=== PATIENT | male | born 1990 | race Caucasian/White ===

== ENCOUNTER 2021-03-05 18:32 | Emergency (ER) | payer BC, SELFPAY ==
[2021-03-05 18:37] VITALS: BP 179/103; PULSE 79; RESP 16; TEMP 36.8; O2SAT 100
--- NOTE | 2021-03-05 20:22 | ED.GENADULT ---
HPI - General Adult General Chief complaint: Extremity Problem,Nontraumatic Stated complaint: Hands Tingling Time Seen by Provider: 03/05/21 19:31 Source: patient Mode of arrival: ambulatory Limitations: no limitations History of Present Illness HPI narrative: Patient is a 10-year-old male presenting with chief complaint of left finger tingling that began on Thursday after doing some activity. Patient states that he notices when he extends his left wrist he makes a fist he has some tingling and shooting pain into his palm and fingers. Patient reports he also noticed some tightening and pain in his left shoulder at the same time. Patient reports that he actually does not have the pains at this time. Patient denies traumatic injury to his neck or other extremities. Patient reports feeling well at this time. He wonders if his anxiety was playing a part in his symptoms. Related Data Allergies Allergy/AdvReac Type Severity Reaction Status Date / Time No Known Allergies Allergy Unverified 03/05/21 19:19 Review of Systems Review of Systems: CONSTITUTIONAL: Denies fever, chills, or sweats. EYES: Denies visual changes, redness, or discharge. ENT: Denies rhinorrhea, congestion, sore throat, or otalgia. CARDIOVASCULAR: Denies chest pain, palpitations, or edema. RESPIRATORY: Denies cough or dyspnea. GASTROINTESTINAL: Denies abdominal pain, nausea, vomiting, or diarrhea. GENITOURINARY: Denies dysuria or hematuria. SKIN: Denies rash or itching. MUSCULOSKELETAL: Denies back pain, joint pain, or myalgia. NEUROLOGIC: Denies headache, numbness, dizziness, or weakness. PSYCHIATRIC: Denies anxiety or depression. Exam Narrative: GENERAL: Well-appearing, well-nourished, and in no acute distress. HEAD: Normocephalic, atraumatic. EYES: PERRLA and EOMI. CHEST: Clear to auscultation. No respiratory distress. No wheezes rales or rhonchi HEART: Regular rate and rhythm. No murmur heard. Normal peripheral pulses. EXTREMITIES: Cap refill intact. Sensation intact. Normal range of motion. No edema. No identified abnormality to patient's upper extremities. No tenderness to palpation or abnormalities to patient left shoulder or neck. SKIN: Warm, dry, no rash. NEURO: No focal deficits. Alert and oriented x3. PSYCH: Normal mood and affect. Course Vital Signs Vital signs: Vital Signs Temperature 98.2 F 03/05/21 18:37 Pulse Rate 79 03/05/21 18:37 Respiratory Rate 16 03/05/21 18:37 Blood Pressure 179/103 H 03/05/21 18:37 Pulse Oximetry 100 03/05/21 18:37 Temperature 98.2 F 03/05/21 18:37 Pulse Rate 79 03/05/21 18:37 Respiratory Rate 16 03/05/21 18:37 Blood Pressure 179/103 H 03/05/21 18:37 Pulse Oximetry 100 03/05/21 18:37 Medical Decision Making MDM Narrative Medical decision making narrative: Patient not have any symptoms at this time. Patient does not have any screening abnormalities or neurological deficits. Patient instructed to return if he has any emergent symptoms. Patient to follow-up with primary care provider investigation if patient needs to return. Vital Signs Vital Signs: Vital Signs Temperature 98.2 F 03/05/21 18:37 Pulse Rate 79 03/05/21 18:37 Respiratory Rate 16 03/05/21 18:37 Blood Pressure 179/103 H 03/05/21 18:37 Pulse Oximetry 100 03/05/21 18:37 Temperature 98.2 F 03/05/21 18:37 Pulse Rate 79 03/05/21 18:37 Respiratory Rate 16 03/05/21 18:37 Blood Pressure 179/103 H 03/05/21 18:37 Pulse Oximetry 100 03/05/21 18:37 Discharge Plan Discharge Clinical Impression: Sprain of wrist, left Qualifiers: Encounter type: initial encounter Qualified Code(s): S63.502A - Unspecified sprain of left wrist, initial encounter Patient Disposition: Home, Self-Care Condition: Improved Instructions: Antibiotic Form, Wrist Sprain (ED) Additional Instructions: Take tylenol and ibuprofen OTC as directed if you can tolerate them if needed. Apply cool compress to
[2021-03-05 20:36] VITALS: BP 150/96; PULSE 77; RESP 18; O2SAT 98
== END 2021-03-05 20:36 | disposition home or self-care (01) ==
PROVIDERS: Emergency Provider Emergency Medicine; PCP Nurse Practitioner Family
DX: S63.502A Unspecified sprain of left wrist, initial encounter (principal); X58.XXXA Exposure to other specified factors, initial encounter
CPT/HCPCS: 99282

== ENCOUNTER 2021-12-27 05:38 | Observation (INO) | payer BC, SELFPAY ==
[2021-12-27] VITALS (28 sets, daily range): BP systolic 130–160; BP diastolic 64–90; PULSE 84–107; RESP 16–22; TEMP 36.6–37.8; O2SAT 97–100; BMI 34.8
--- NOTE | ~2021-12-27 | CT_ITS ---
EXAMINATION: CT abdomen pelvis w con DATE: 12/27/2021 06:37 INDICATION: Abdominal pain TECHNIQUE: Computed tomography (CT) of the abdomen and pelvis was performed with 100 mL Omnipaque-350 intravenous contrast. Automated exposure control and iterative reconstruction technique were employe d. The dose-length product was 1134.21 mGy-cm. COMPARISON: None FINDINGS: Lung bases are clear. Heart size is normal. No pericardial or pleural effusion. Liver, gallbladder, s pleen, pancreas, bilateral adrenal glands and kidneys are normal. Small bowel and appendix are normal . There are few diverticula along the sigmoid colon. There is focal wall thickening at the proximal s igmoid colon with adjacent inflammatory stranding and small amounts of extraluminal gas within the zheng rrounding mesenteric fat consistent with diverticulitis with microperforation. No more remote free in traperitoneal gas or abscess. Minimal likely reactive ascites in the deep pelvis. Bladder is normal. No pathologically enlarged abdominal or pelvic lymphadenopathy. Cystic change at the cephalad left fe moral head neck junction. IMPRESSION: 1. Diverticulitis with microperforation and small amount of local extraluminal gas but without absces s. Reviewed, dictated and finalized at location A. IMPRESSION: 1. Diverticulitis with microperforation and small amount of local extraluminal gas but without abscess.
[2021-12-27 05:56] LABS: Basophils Absolute Auto 0.1 K/mm3 (0.0-0.1); Basophils Percent Auto 0.8 % (0.2-1.2); Eosinophils Absolute Auto 0.2 K/mm3 (0-0.3); Eosinophils Percent Auto 1.5 % (0-4.4); Hematocrit 46.3 % (42.0-52.0); Hemoglobin 15.7 g/dL (14.0-18.0); Immature Granulocyte Absolute 0.07 K/mm3 (0.00-0.031); Immature Granulocyte Percent A 0.5 % (0-0.5); Lymphocytes Absolute Auto 3.73 K/mm3 (0.9-3.2); Mean Corpuscular HGB Conc 33.9 g/dl (32-36); Mean Corpuscular Hemoglobin 29.8 pg (26-34); Mean Platelet Volume 9.6 fl (7.4-10.4); Monocytes Absolute Auto 1.5 K/mm3 (0.1-0.6); Monocytes Percent Auto 10.1 % (2.6-8.5); Neutrophils Absolute Auto 8.8 K/mm3 (1.3-6.7); Neutrophils Percent Auto 61.1 % (45.5-73.1); Platelet Count Result 323 k/mm3 (150-375); Red Blood Count 5.26 M/mm3 (4.6-6.20); Red Cell Distribution Width 12.6 % (11.5-14.5); White Blood Count 14.4 K/mm3 (4.5-10.0)
[2021-12-27 06:06] LABS: Alanine Aminotransferase 42 U/L (6-50); Albumin Level 4.6 g/dL (3.5-5.1); Alkaline Phosphatase 106 U/L (38-126); Anion Gap 14 mmol/L (8-16); Aspartate Amino Transferase 38 U/L (17-59); Bilirubin,Total 1.4 mg/dL (0.2-1.3); Blood Urea Nitrogen 10 mg/dL (9-20); Calcium 8.8 mg/dL (8.4-10.2); Carbon Dioxide 22 mmol/L (22-30); Chloride 103 mmol/L (98-107); Estimated CRCL calculation 118 ml/min; Estimated Glomerular Filt Rate > 60; Glucose 119 mg/dL (65-110); Lipase 53 U/L (23-300); Sodium 139 mmol/L (137-145)
--- NOTE | 2021-12-27 06:17 | ED.GENADULT ---
HPI - General Adult General Chief complaint: Abdominal Pain Stated complaint: abd/ testicular pain Time Seen by Provider: 12/27/21 05:56 History of Present Illness HPI narrative: Patient is a 31-year-old gentleman who presents the emergency department with chief complaint of abdominal pain. Patient states that this evening he started having pain throughout his abdomen and reports it radiates to the groin. Patient reports no specific testicular pain but states that though he feels as though he has been kicked in the groin without pain in the actual testicles. Patient denies dysuria denies penile discharge denies vomiting or diarrhea. Patient reports the pain in his abdomen is worse with palpation and improved with rest. Related Data Allergies Allergy/AdvReac Type Severity Reaction Status Date / Time No Known Allergies Allergy Verified 12/27/21 05:49 Review of Systems Review of Systems: A 10 system review of systems was completed on the patient and is negative except for what is stated in the HPI. Nursing and ancillary documentation was reviewed. Exam Narrative: GENERAL: Well-appearing, well-nourished, and in no acute distress. HEAD: Normocephalic, atraumatic. EYES: PERRLA and EOMI. ENT: Nares clear, no rhinorrhea or epistaxis. Mucous membranes moist. NECK: Supple. CHEST: Clear to auscultation. No respiratory distress. HEART: Regular rate and rhythm. No murmur heard. Normal peripheral pulses. ABDOMEN: Soft, tender to palpation in the right lower quadrant and left lower quadrant nondistended, normal active bowel sounds. EXTREMITIES: Normal range of motion. No edema. SKIN: Warm, dry, no rash. NEURO: No focal deficits. Alert and oriented x3. PSYCH: Normal mood and affect. Course Course Emergency Course: CT scan of the abdomen pelvis showed evidence of acute diverticulitis with a microscopic perforation. The patient has a white blood cell count of 14,000. Patient reports his pain is feeling a little bit better after the fluids and morphine. A dose of Zosyn was ordered for the patient and a call has been placed to surgery and the hospitalist service. Vital Signs Vital signs: Vital Signs Temperature 36.7 C 12/27/21 05:46 Pulse Rate 87 12/27/21 05:46 Respiratory Rate 18 12/27/21 05:46 Blood Pressure 160/90 H 12/27/21 05:46 Pulse Oximetry 100 12/27/21 05:46 Oxygen Delivery Room Air 12/27/21 05:46 Temperature 36.7 C 12/27/21 05:46 Pulse Rate 84 12/27/21 07:15 Respiratory Rate 18 12/27/21 07:15 Blood Pressure 142/88 H 12/27/21 06:16 Pulse Oximetry 99 12/27/21 07:15 Oxygen Delivery Room Air 12/27/21 05:46 Medical Decision Making Vital Signs Vital Signs: Vital Signs Temperature 36.7 C 12/27/21 05:46 Pulse Rate 87 12/27/21 05:46 Respiratory Rate 18 12/27/21 05:46 Blood Pressure 160/90 H 12/27/21 05:46 Pulse Oximetry 100 12/27/21 05:46 Oxygen Delivery Room Air 12/27/21 05:46 Temperature 36.7 C 12/27/21 05:46 Pulse Rate 84 12/27/21 07:15 Respiratory Rate 18 12/27/21 07:15 Blood Pressure 142/88 H 12/27/21 06:16 Pulse Oximetry 99 12/27/21 07:15 Oxygen Delivery Room Air 12/27/21 05:46 Lab Data Result diagrams: 12/27/21 05:50 12/27/21 05:50 Labs: Lab Results 12/27/21 12/27/21 12/27/21 Range/Units 05:50 05:50 07:13 WBC 14.4 H (4.5-10.0) K/mm3 RBC 5.26 (4.6-6.20) M/mm3 Hgb 15.7 (14.0-18.0) g/dL Hct 46.3 (42.0-52.0) % MCV 88.0 (80-100) fl MCH 29.8 (26-34) pg MCHC 33.9 (32-36) g/dl RDW 12.6 (11.5-14.5) % Plt Count 323 (150-375) k/mm3 MPV 9.6 (7.4-10.4) fl Immature Gran % (Auto) 0.5 (0-0.5) % Neut % (Auto) 61.1 (45.5-73.1) % Lymph % (Auto) 26.0 (18.3-44.2) % [place] % (Auto) 10.1 H (2.6-8.5) % Eos % (Auto) 1.5 (0-4.4) % Baso % (Auto) 0.8 (0.2-1.2) % Lymph # (Auto) 3.73 H (0.9-3.2) K/mm3 [place] # (Auto) 1.5 H
[2021-12-27] MEDS: SODIUM CHLORIDE 0.9% IV 1,000 ML 999 ML IV CONT (06:24)
--- NOTE | 2021-12-27 06:24 | PC.NURSE ---
Fluids hung at this time. Refusing pain or nausea meds at this time. Asked to hold of because not having pain now
--- NOTE | 2021-12-27 07:05 | PC.NURSE ---
Report given to Deb QUINTANA
--- NOTE | 2021-12-27 07:17 | PC.NURSE ---
Assumed care of patient, MD at bedside. Urine sent to lab. Pt does not want morphine or zofran at this time. Informed if he changes his mind to alert MD. Call light in reach.
[2021-12-27 07:22] LABS: Appearance Urine Clear (Clear); Bilirubin Urine Negative (Negative); Color Urine Yellow (Yellow); Glucose Urine UA Negative (Negative); Ketones Urine Negative (Negative); Leukocyte Esterase Ur Negative LEU/UL (Negative); Nitrate Urine Negative (Negative); Protein Urine Negative (Negative); Urobilinogen Urine 0.2 mg/dL (<2.0)
[2021-12-27 07:25] LABS: Bacteria Urine Trace /hpf; RBC Urine 0-2 /hpf (0-2); WBC Urine 0-3 /hpf
[2021-12-27 07:32] LABS: Add Urine Microscopic? YES; Blood Urine Trace-Intact (Negative)
[2021-12-27] MEDS: SODIUM CHLORIDE 0.9% IV 1,000 ML 125 ML IV CONT ×2 (08:13→16:09)
[2021-12-27 08:36] LABS: SARS-CoV-2 RNA PCR Negative
--- NOTE | 2021-12-27 10:29 | ADMGEN ---
This patient, Heavenly Morales, was admitted to [facility] Surg Room 309-01 at 1025. Patient/family oriented to hospital policies and general routines including ID bracelet, bed and alarms, visiting hours, pain management, procedures, bathroom and other care routines, personal items, smoking policy, room service/diet, and visiting hours. Information on how to activate the Rapid Response Team has been discussed. Patient/Family are encouraged to report perceived risks to care and to ask questions if they do not understand what they are told or what they should do.
[2021-12-27] MEDS: ONDANSETRON INJ 4 MG/2 ML VIAL IV PUSH ×2 (11:00→13:42)
--- NOTE | 2021-12-27 13:17 | PM.IMHP ---
H&P: HPI History of Present Illness Date/Time: 12/27/21 13:17 Chief Complaint: Abdominal pain Narrative: This is a 31-year-old male patient who has had a long history of abdominal pain on and off. The patient has seen his primary care doctor for abdominal pain in the past and was told that he has irritable bowel syndrome. The patient started to have some discomfort yesterday he stated that it started in his upper quadrant but then moved down to his lower abdomen. He has no testicular pain but has right and left lower quadrant discomfort. He has no penile discharge. Denies any vomiting or diarrhea. The patient stated that his pain is worse when he moves or walks. He has had no past history of diverticulosis. His white count is 14.4. He has a subjective fever. COVID is negative. Urine is negative. Abdominal pelvis CT was read as diverticulitis with micro perforation and small amount of local extra luminal gas but without abscess. The patient was started on Zosyn, IV fluids and prescribed morphine for the pain. Patient is now complaining of a headache. The patient is being admitted for observation status on the date of service of 12/27/2021. Review of Systems Review of Systems: See HPI All systems reviewed & are unremarkable except as noted in HPI and below Constitutional: Constitutional: Reports as per HPI and Reports no additional constitutional complaints Eyes: Eyes: Reports as per HPI and Reports no additional eye complaints ENT: Reports system reviewed and no additional complaints, except as documented and Reports Normal hearing present Cardiovascular: Cardiovascular: Reports no additional cardiovascular complaints Respiratory: Respiratory: Reports no additional respiratory complaints and Reports no additional respiratory complaints Gastrointestinal: Gastrointestinal: Reports as per HPI and Reports no additional gastrointestinal complaints Musculoskeletal: Musculoskeletal: Reports no additional musculoskeletal complaints Integumentary/Breasts: Skin/Breast: Reports system reviewed and no additional complaints, except as docu and Reports as per HPI Neurologic: Reports system reviewed and no additional complaints, except as documented, Reports as per HPI and Reports Normal hearing present Psychiatric: Psychiatric: Reports no additional psychiatric complaints and Reports as per HPI Endocrine: Endocrine: Reports no additional endocrine complaints Hematologic/Lymphatic: Hematologic/Lymphatic: Reports no additional hematologic/lymphatic complaints Allergic/Immunologic: Allergic/Immunologic: Reports no additional allergic/immunologic complaints [facility] Past Medical History Medical History (Updated 12/27/21 @ 14:42 by Catrina Gonzalez NP) Hyperlipidemia Hypertension Irritable bowel syndrome Migraines Surgical History Surgical History (Updated 12/27/21 @ 14:42 by Catrina Gonzalez NP) No pertinent past surgical history Family History Family History (Updated 12/27/21 @ 14:44 by Catrina Gonzalez NP) Mother Hypertension COPD (chronic obstructive pulmonary disease) Hyperlipidemia Seizure Cerebrovascular accident Father Hyperlipidemia Social History Social History (Updated 12/27/21 @ 14:47 by Catrina Gonzalez NP) Social History: 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 He has some fiancee. Patient is a lifelong nonsmoker does not drink use marijuana or illicit drugs. He does not have a durable power delivery person for healthcare. Code status full code Smoking status: Never smoker Alcohol intake: former Substance use: never Spiritual care concerns: No Meds Home Medications and Allergies Home Medications Medication Instructions Recorded Confirmed Type acetaminophen 500 mg tablet 1,000 mg PO Q6H PRN Migraines 12/27/21 12/27/21 History (Acetaminophen Extra Strength) Allergies Allergy/AdvReac Type Severity Reaction Status Date / Time No Known Allergies Allergy Verified
[2021-12-27] MEDS: KETOROLAC 30 MG/ML VIAL (*BKC) IV PUSH (13:40)
--- NOTE | 2021-12-27 15:14 | PM.CNGS ---
Assessment and Plan Assessment and plan (1) Diverticulitis: Code(s): K57.92 - Diverticulitis of intestine, part unspecified, without perforation or abscess without bleeding Status: Acute Assessment and Plan: Recommend bowel rest, IV antibiotics, and gradual increase in diet if he does well. For now will keep NPO except allowing 1 cup of ice chips every 4 hours. Will check him again tomorrow. I encouraged him to be up walking some after pain medicine and I also encouraged him to learn about high-fiber diet. Will put in dietary consult to have him get literature about initially a low-fiber diet while he takes antibiotics and then converting to a high-fiber diet to prevent a separate or recurrent episode of his diverticulitis. Repeat labs in the a.m.. SCD hose to prevent DVT while he is less mobile. (2) Migraines: Code(s): G43.909 - Migraine, unspecified, not intractable, without status migrainosus Status: Acute (3) Hypertension: Code(s): I10 - Essential (primary) hypertension Status: Acute History of Present Illness Consult details Consult date: 12/27/21 Reason for consult: abdominal pain (CT showing left-sided diverticulitis) Requesting physician: Catrina Gonzalez NP Narrative: Patient is a pleasant 31-year-old white gentleman who presented early this morning to the [facility] department with chief complaint of abdominal pain.? He states it is mainly low left abdomen radiating toward the center. Patient states that early this morning just after having a bowel movement he started having pain throughout his abdomen (mainly lower) and reports it radiates sometimes when he moves just right to the left groin.? Patient reports no specific testicular pain but states that though he feels as though he has been kicked in the groin without pain in the actual testicles.? Patient denies dysuria denies penile discharge denies vomiting or diarrhea. States typically has a bowel movement once or twice a day and this has been true over the last week. He has never had a previous episode of diverticulitis. He did not know what it was. At his young age he has never had colonoscopy or any other intestinal problems. Review of Systems Review of Systems: All systems reviewed & are unremarkable except as noted in HPI and below (HPI) Constitutional: Constitutional: Reports as per HPI, Denies chills and Denies fever(s) Eyes: Eyes: Reports no additional eye complaints ENT: Reports Normal hearing present and Denies dizziness Cardiovascular: Cardiovascular: Reports no additional cardiovascular complaints, Denies chest pain and Denies irregular heart rhythm Comments: History hypertension hyperlipidemia. After his PCP told to 2 years ago that he needed go on medication he refused and changed his lifestyle and lost about 30 lb. However, apparently he is still on the borderline with both of these things. Respiratory: Respiratory: Reports no additional respiratory complaints Gastrointestinal: Gastrointestinal: Reports no additional gastrointestinal complaints, Denies abdominal pain and Denies bloating Comments: No history of previous abdominal surgery No History of previous episodes of diverticulitis. Genitourinary: Genitourinary: Denies hematuria Musculoskeletal: Musculoskeletal: Denies back pain Integumentary/Breasts: Skin/Breast: Reports system reviewed and no additional complaints, except as docu Neurologic: Reports Normal hearing present, Denies Abnormal speech present, Denies confusion and Denies dizziness Psychiatric: Psychiatric: Reports no additional psychiatric complaints and Denies confusion Endocrine: Endocrine: Reports no additional endocrine complaints Hematologic/Lymphatic: Hematologic/Lymphatic: Denies easy bleeding and Denies easy bruising Allergic/Immunologic: Allergic/Immunologic: Reports no additional allergic/immunologic complaints PMFSH Past Medical History Medical Hist
[2021-12-27] MEDS: HYDROmorphone HCL INJ (*CRX) 1 MG/ML SYR 0.5 MG IV PUSH (17:53)
[2021-12-28] MEDS: SODIUM CHLORIDE 0.9% IV 1,000 ML 125 ML IV CONT ×2 (01:19→10:12)
[2021-12-28 06:00] VITALS: BP 128/59; PULSE 96; RESP 18; TEMP 37.2; O2SAT 99
[2021-12-28 06:42] LABS: Basophils Absolute Auto 0.1 K/mm3 (0.0-0.1); Basophils Percent Auto 0.3 % (0.2-1.2); Eosinophils Percent Auto 0.2 % (0-4.4); Hematocrit 38.4 % (42.0-52.0); Hemoglobin 12.9 g/dL (14.0-18.0); Immature Granulocyte Absolute 0.05 K/mm3 (0.00-0.031); Immature Granulocyte Percent A 0.3 % (0-0.5); Lymphocytes Absolute Auto 1.71 K/mm3 (0.9-3.2); Lymphocytes Percent Auto 10.5 % (18.3-44.2); Mean Corpuscular HGB Conc 33.6 g/dl (32-36); Mean Corpuscular Hemoglobin 29.4 pg (26-34); Mean Corpuscular Volume 87.5 fl (80-100); Mean Platelet Volume 9.8 fl (7.4-10.4); Monocytes Absolute Auto 1.5 K/mm3 (0.1-0.6); Neutrophils Percent Auto 79.7 % (45.5-73.1); Platelet Count Result 261 k/mm3 (150-375); Red Blood Count 4.39 M/mm3 (4.6-6.20); Red Cell Distribution Width 12.5 % (11.5-14.5); White Blood Count 16.3 K/mm3 (4.5-10.0)
[2021-12-28 06:57] LABS: Alanine Aminotransferase 33 U/L (6-50); Alkaline Phosphatase 98 U/L (38-126); Anion Gap 10 mmol/L (8-16); Aspartate Amino Transferase 24 U/L (17-59); Bilirubin,Total 2.7 mg/dL (0.2-1.3); Blood Urea Nitrogen 10 mg/dL (9-20); Calcium 8.4 mg/dL (8.4-10.2); Carbon Dioxide 26 mmol/L (22-30); Chloride 101 mmol/L (98-107); Cholesterol 154 mg/dL (0-200); Estimated CRCL calculation 116 ml/min; Estimated Glomerular Filt Rate > 60; Glucose 110 mg/dL (65-110); HDL Direct 38 mg/dL; Lipase 29 U/L (23-300); Potassium 3.3 mmol/L (3.4-5.0); Sodium 137 mmol/L (137-145); Triglycerides 90 mg/dL (<150)
[2021-12-28 06:59] LABS: Lactic Acid Reflex 1.2 mmol/L (0.7-2.0)
[2021-12-28 07:08] LABS: LDL Cholesterol Direct 88 mg/dL
[2021-12-28 08:23] LABS: Thyroid Stimulating Hormone Reflex 0.764 uIU/mL (0.465-4.68)
[2021-12-28 09:56] VITALS: O2SAT 99
--- NOTE | 2021-12-28 10:40 | PM.PNGS ---
Progress Note: A&P Assessment and Plan (1) Diverticulitis: Code(s): K57.92 - Diverticulitis of intestine, part unspecified, without perforation or abscess without bleeding Status: Acute Assessment and Plan: The patient seems to be improving with IV fluids, bowel rest, and antibiotics. Will begin to liberalize diet and have patient increase activity. recheck CBC in a.m. as his white count did go up a little bit. Will have him begin taking MiraLax once a day starting tomorrow. I have also ordered him some oral pain medication that he can begin to switch to. I provided him with some literature regarding diverticulosis diverticulitis which I will discuss with him further tomorrow. Subjective Subjective Date/Time Seen: 12/28/21 10:40 Post hospital day# 2. Patient states today his pain is less than yesterday. He has been up walking and it still is more discomforting for him in the left lower quadrant when he is moving then when he is laying in bed where he has almost no pain. Knows that he had a low-grade fever overnight. Is passing flatus but no real bowel movement yet. Review of Systems Review of Systems: All systems reviewed & are unremarkable except as noted in HPI and below Constitutional: Constitutional: Reports as per HPI, Denies chills and Denies fever(s) Cardiovascular: Cardiovascular: Denies chest pain and Denies dyspnea Respiratory: Respiratory: Reports no additional respiratory complaints and Denies dyspnea Gastrointestinal: Gastrointestinal: Reports as per HPI and Denies bloating Musculoskeletal: Musculoskeletal: Reports no additional musculoskeletal complaints Neurologic: Denies memory loss Psychiatric: Psychiatric: Denies anxiety and Denies memory loss Exam Const: General: cooperative, comfortable, alert and awake Orientation/consciousness: patient oriented x3 HENMT: Head: normal to inspection Mouth: Yes moist mucous membranes Eyes: Sclera: sclerae normal Pupils: Equal, round and reactive pupils present Neck: Neck: normal visual inspection and no JVD Chest: Chest palpation & inspection: normal inspection of the chest Resp: Effort & Inspection: normal respiratory effort Auscultation: clear to auscultation bilaterally GI: Inspection: normal to inspection, obesity and no visible herniation GI Palp: Yes abdominal tenderness ( Mainly suprapubic and left lower quadrant), No Guarding due to palpation present (GI), No Rigid due to palpation and No Hernia present Auscultation: normal bowel sounds Rectal Exam: deferred Neuro: General: patient oriented x3 Objective Data Vital Signs Vital Signs: Vital Signs - 24 hr 12/27/21 10:43 12/27/21 14:00 12/27/21 22:00 Temperature 37.3 C 37.8 C H Pulse Rate 102 H 107 H Respiratory Rate 18 19 Blood Pressure 138/86 146/64 H Pulse Oximetry 99 99 98 Oxygen Delivery Room Air 12/27/21 20:00 12/28/21 06:00 12/28/21 09:56 Temperature 37.2 C Pulse Rate 107 H 96 Respiratory Rate 19 18 Blood Pressure 128/59 L Pulse Oximetry 98 99 99 Oxygen Delivery Room Air Room Air Intake/Output Intake/Output: Intake & Output 12/25/21 12/26/21 12/27/21 12/28/21 23:59 23:59 23:59 23:59 Intake Total 2410 2100 Output Total 1375 Balance 1035 2100 Meds/Results Medications: Active Medications Generic Name Dose Route Start Last Admin Trade Name Freq PRN Reason Stop Dose Admin Acetaminophen 1,000 mg 12/28/21 10:38 Acetaminophen 500 Mg Tablet PO Q6H PRN Mild Pain (1-3) or Fever Hydrocodone Bitart/Acetaminophen 1 tab 12/28/21 10:38 Hydrocodone/Acetaminophen (*Crx) 5-325 Mg Tablet PO Q6H PRN Pain Rated 4-6 Hydrocodone Bitart/Acetaminophen 1 tab 12/28/21 10:39 Hydrocodone/Acetaminophen (*Crx) 7.5-325 Mg Tablet PO Q6H PRN Pain Rated 7-10 Hydralazine HCl 10 mg 12/27/21 14:58 Hydralazine Hcl 20 Mg/Ml Vial IV PUSH Q8H PRN Blood Pressure - High P
[2021-12-28] MEDS: ACETAMINOPHEN 500 MG TABLET 1000 MG PO ×2 (12:04→19:25)
[2021-12-28 12:21] LABS: Basophils Percent Auto 0.3 % (0.2-1.2); Eosinophils Percent Auto 0.1 % (0-4.4); Hemoglobin 13.3 g/dL (14.0-18.0); Immature Granulocyte Absolute 0.06 K/mm3 (0.00-0.031); Immature Granulocyte Percent A 0.4 % (0-0.5); Lymphocytes Absolute Auto 1.26 K/mm3 (0.9-3.2); Lymphocytes Percent Auto 8.5 % (18.3-44.2); Mean Corpuscular HGB Conc 34.1 g/dl (32-36); Mean Corpuscular Hemoglobin 29.5 pg (26-34); Mean Corpuscular Volume 86.5 fl (80-100); Mean Platelet Volume 9.4 fl (7.4-10.4); Monocytes Absolute Auto 0.7 K/mm3 (0.1-0.6); Neutrophils Absolute Auto 12.7 K/mm3 (1.3-6.7); Neutrophils Percent Auto 85.7 % (45.5-73.1); Platelet Count Result 249 k/mm3 (150-375); Red Blood Count 4.51 M/mm3 (4.6-6.20); Red Cell Distribution Width 12.3 % (11.5-14.5); White Blood Count 14.8 K/mm3 (4.5-10.0)
--- NOTE | 2021-12-28 13:58 | PM.IMPN ---
Progress Note: A&P Assessment and Plan (1) Diverticulitis: Code(s): K57.92 - Diverticulitis of intestine, part unspecified, without perforation or abscess without bleeding Status: Acute Assessment and Plan: Patient presented with abdominal pain ongoing for [address] of abdomen/ pelvis showed diverticulitis with micro perforation and small amount of local extraluminal gas without identification of abscess appreciate general surgery consultation tolerating clear liquid diet. Advance diet as tolerated per General surgery recommendations continue gentle IV fluids until better tolerating diet continue IV Zosyn mild increase in leukocytosis overnight but recheck this afternoon and slightly improved at 14.8 low-grade fever 100.1? last night. Remaining afebrile today supportive care. Analgesics available as needed patient reports no history of diverticulitis. No colonoscopy. Will need outpatient follow-up following resolution of diverticulitis to consider outpatient colonoscopy (2) Migraines: Code(s): G43.909 - Migraine, unspecified, not intractable, without status migrainosus Status: Acute Assessment and Plan: resolved improved with analgesics offered sumatriptan last night, patient declined due to concerns for adverse effects (3) Hypertension: Code(s): I10 - Essential (primary) hypertension Status: Acute Assessment and Plan: blood pressure has been reasonably controlled. Last BP 128/59 patient is not on p.o. antihypertensives reportedly managing his blood pressure with dietary and lifestyle changes monitor BP trends (4) Hypokalemia: Code(s): E87.6 - Hypokalemia Status: Acute Assessment and Plan: potassium was 3.3 today likely due to NPO diet potassium has been supplemented monitor BMP (5) Hyperbilirubinemia: Code(s): E80.6 - Other disorders of bilirubin metabolism Status: Acute Assessment and Plan: total bilirubin mildly elevated at 2.7 today LFTs are within normal limits most likely benign genetic conditions such as Swengel disease. trend total bilirubin will obtain indirect and direct bilirubin levels with a.m. labs Subjective Date/time seen: 12/28/21 13:58 Interval history: date of service: 12/28/2021 Heavenly Morales is a 31-year-old male with a history of hypertension, hyperlipidemia, IBS, and migraines who is seen in follow-up for diverticulitis. He has starting to feel better today. He does complain of abdominal discomfort when he leans forward or moves around. He describes gas bubbles in his right upper quadrant area that he noticed moving around after he was eating. He was able to tolerate his clear liquid diet. He initially described some abdominal pressure when he 1st started eating but this passed quickly and he was able to finish most of his tray. He is passing flatus but states it is uncomfortable to do so. He has not had any bowel movements. He reports a low-grade fever overnight but today denies fevers, chills, sweats. He does state that his face will intermittently become warm. He denies dizziness, lightheadedness, weakness, shortness of breath, cough, chest pain. reports he had a headache last night but this has improved today after medication. Does report a history of migraines. Review of Systems Review of Systems: All systems reviewed & are unremarkable except as noted in HPI and below Exam Narrative: General: Well-nourished, well-appearing 31-year-old male, sitting up in a chair, comfortable, NARD Neuro: awake, alert and oriented x4, speech clear, no focal neuro deficits noted HEENMT: normocephalic, atraumatic, EOMI, sclerae anicteric, moist oral mucosa Respiratory: clear to auscultation bilaterally, nonlabored breathing Cardio: regular rate, regular rhythm with S1-S2 Abdomen: nondistended, hypoactive bowel sounds, soft, mi
[2021-12-28 14:00] VITALS: BP 135/88; PULSE 84; RESP 18; TEMP 37.1; O2SAT 100
[2021-12-28] MEDS: POTASSIUM CHLORIDE 20 MEQ TABLET PO (17:07)
[2021-12-28 22:00] VITALS: BP 122/67; PULSE 85; RESP 17; TEMP 37.1; O2SAT 98
[2021-12-29] MEDS: SODIUM CHLORIDE 0.9% IV 1,000 ML 90 ML IV CONT (03:15)
[2021-12-29] MEDS: ACETAMINOPHEN 500 MG TABLET 1000 MG PO (03:17)
[2021-12-29 06:00] VITALS: BP 119/76; PULSE 79; RESP 18; TEMP 36.7; O2SAT 100
[2021-12-29 06:27] LABS: Basophils Absolute Auto 0.1 K/mm3 (0.0-0.1); Basophils Percent Auto 0.5 % (0.2-1.2); Eosinophils Absolute Auto 0.1 K/mm3 (0-0.3); Eosinophils Percent Auto 0.7 % (0-4.4); Hematocrit 38.7 % (42.0-52.0); Hemoglobin 12.5 g/dL (14.0-18.0); Immature Granulocyte Absolute 0.06 K/mm3 (0.00-0.031); Immature Granulocyte Percent A 0.5 % (0-0.5); Immature Platelet Fraction Pct 4.2 % (0.9-11.2); Lymphocytes Absolute Auto 1.83 K/mm3 (0.9-3.2); Lymphocytes Percent Auto 15.1 % (18.3-44.2); Mean Corpuscular HGB Conc 32.3 g/dl (32-36); Mean Corpuscular Volume 89.8 fl (80-100); Mean Platelet Volume 10.3 fl (7.4-10.4); Monocytes Absolute Auto 1.3 K/mm3 (0.1-0.6); Monocytes Percent Auto 10.4 % (2.6-8.5); Neutrophils Absolute Auto 8.8 K/mm3 (1.3-6.7); Neutrophils Percent Auto 72.8 % (45.5-73.1); Platelet Count Result 169 k/mm3 (150-375); Red Blood Count 4.31 M/mm3 (4.6-6.20); Red Cell Distribution Width 12.2 % (11.5-14.5); White Blood Count 12.1 K/mm3 (4.5-10.0)
[2021-12-29 06:38] LABS: Alanine Aminotransferase 27 U/L (6-50); Alkaline Phosphatase 86 U/L (38-126); Anion Gap 13 mmol/L (8-16); Aspartate Amino Transferase 27 U/L (17-59); Bilirubin,Total 1.6 mg/dL (0.2-1.3); Blood Urea Nitrogen 8 mg/dL (9-20); Calcium 8.3 mg/dL (8.4-10.2); Carbon Dioxide 20 mmol/L (22-30); Chloride 105 mmol/L (98-107); Estimated CRCL calculation 130 ml/min; Estimated Glomerular Filt Rate > 60; Glucose 95 mg/dL (65-110); Potassium 3.6 mmol/L (3.4-5.0); Sodium 138 mmol/L (137-145)
--- NOTE | 2021-12-29 08:50 | PM.PNGS ---
Progress Note: A&P Assessment and Plan (1) Diverticulitis: Code(s): K57.92 - Diverticulitis of intestine, part unspecified, without perforation or abscess without bleeding Status: Acute Assessment and Plan: The patient seems to be improving with antibiotics and conservative management. Tolerated a full liquid diet last evening and is trying it for breakfast. Patient has instructions for low-fiber diet and eventually a high-fiber diet from the [facility]. Okay with surgery for him to go home and he can increase the diet and have him increase activity there. CBC Today shows white count down to 12. He knows to avoid constipation and have either milk of magnesia or MiraLax on hand at home. He will take it if he goes more than 24 hours without a bowel movement. I provided him with some literature regarding diverticulosis diverticulitis which I have discussed with him further tomorrow. Discussed with him today that depending on how he does he may be recommended to have a colonoscopy in 4-6 weeks because of this episode of diverticulitis and to rule out other possible problems. Subjective Subjective Date/Time Seen: 12/29/21 08:50 Patient reports: no new complaints, flatus, bowel movement and diarrhea ( Proximally 3-5 loose stools since noon yesterday.) Exam GI: Inspection: normal to inspection, obesity and no visible herniation GI Palp: Yes abdominal tenderness ( Less tender than yesterday. Mainly lower mid and left abdomen) and No Guarding due to palpation present (GI) Auscultation: normal bowel sounds Objective Data Vital Signs Vital Signs: Vital Signs - 24 hr 12/28/21 09:56 12/28/21 14:00 12/28/21 22:00 Temperature 37.1 C 37.1 C Pulse Rate 84 85 Respiratory Rate 18 17 Blood Pressure 135/88 122/67 Pulse Oximetry 99 100 98 Oxygen Delivery Room Air 12/29/21 06:00 Temperature 36.7 C Pulse Rate 79 Respiratory Rate 18 Blood Pressure 119/76 Pulse Oximetry 100 Oxygen Delivery Intake/Output Intake/Output: Intake & Output 12/26/21 12/27/21 12/28/21 12/29/21 23:59 23:59 23:59 23:59 Intake Total 2410 6560 100 Output Total 1375 1550 Balance 1035 5010 100 Meds/Results Medications: Active Medications Generic Name Dose Route Start Last Admin Trade Name Freq PRN Reason Stop Dose Admin Acetaminophen 1,000 mg 12/28/21 10:38 12/29/21 03:17 Acetaminophen 500 Mg Tablet PO 1,000 mg Q6H PRN Administration Mild Pain (1-3) or Fever Hydrocodone Bitart/Acetaminophen 1 tab 12/28/21 10:38 Hydrocodone/Acetaminophen (*Crx) 5-325 Mg Tablet PO Q6H PRN Pain Rated 4-6 Hydrocodone Bitart/Acetaminophen 1 tab 12/28/21 10:39 Hydrocodone/Acetaminophen (*Crx) 7.5-325 Mg Tablet PO Q6H PRN Pain Rated 7-10 Hydralazine HCl 10 mg 12/27/21 14:58 Hydralazine Hcl 20 Mg/Ml Vial IV PUSH Q8H PRN Blood Pressure - High Piperacillin/Tazobactam/Dextrose 3.375 gm in 50 mls @ 100 mls/hr 12/27/21 13:00 12/29/21 07:47 Zosyn 3.375 Gm/D5w 50ml Pm IVPB Infused Q6HR SLOAN Infusion Ondansetron HCl 4 mg 12/27/21 07:24 12/27/21 13:42 Ondansetron Inj 4 Mg/2 Ml Vial IV PUSH 4 mg Q4H PRN Administration Nausea Polyethylene Glycol 17 gm 12/28/21 10:39 Polyethylene Glycol 3350 17 Gm Powd.Pack PO QAM PRN Constipation Radiology Results: ITS Impressions Abdomen/Pelvis CT 12/27/21 06:55 IMPRESSION: 1. Diverticulitis with microperforation and small amount of local extraluminal gas but without abscess. Labs Labs: Laboratory Results - last 24 hr 12/28/21 12/29/21 12/29/21 12:16 05:51 05:51 WBC 14.8 H 12.1 H RBC 4.51 L 4.31 L Hgb 13.3 L 12.5 L Hct 39.0 L 38.7 L MCV 86.5 89.8 MCH 29.5 29.0 MCHC 34.1 32.3 RDW 12.3 12.2 Plt Count 249 169 MPV 9.4 10.3 Immature Gran % (Auto) 0.4 0.5 Neut % (Auto) 85.7 H 72.8 Lymph % (Auto) 8.5 L 15.1 L [place] % (Auto
--- NOTE | 2021-12-30 08:29 | PM.DS ---
DS: Admitting Diagnosis Discharge Date 12/29/21 Admitting Diagnosis Diverticulitis DS: Discharge Diagnosis Discharge Diagnosis (1) Diverticulitis: Code(s): K57.92 - Diverticulitis of intestine, part unspecified, without perforation or abscess without bleeding Status: Acute Assessment and Plan: Patient presented with abdominal pain ongoing for [address] abdomen/pelvis showed diverticulitis with microperforations and small amount of extraluminal gas without identification of abscess He was seen in consultation by General surgery He was treated with IV Zosyn during admission and transition to p.o. Levaquin and Flagyl for 7 day course following discharge Rehydrated appropriately with IV fluids. Diet was able to be slowly advanced and he eventually was able to tolerate a low-fiber diet Patient educated on need to continue low-fiber diet. He will follow-up with General surgery in 1 week Will need to schedule outpatient colonoscopy (2) Migraines: Code(s): G43.909 - Migraine, unspecified, not intractable, without status migrainosus Status: Acute Assessment and Plan: Patient with history of migraines complained of headache on admission which resolved. Patient was off her sumatriptan however decline due to concerns for adverse effects (3) Hypertension: Code(s): I10 - Essential (primary) hypertension Status: Acute Assessment and Plan: Blood pressures reviewed during admission were stable. Patient is not on p.o. antihypertensives. Reportedly managing his blood pressure with dietary lifestyle changes (4) Hypokalemia: Code(s): E87.6 - Hypokalemia Status: Acute Assessment and Plan: Resolved. Likely due to NPO status. Potassium normalized with advancement of diet (5) Hyperbilirubinemia: Code(s): E80.6 - Other disorders of bilirubin metabolism Status: Acute Assessment and Plan: Total bilirubin was mildly elevated up to 2.7. LFTs within normal limits. Direct bilirubin normal. Suspect benign genetic conditions such as Gilbert's disease. Total bili improved to 1.6 at time of discharge DS: Summary Hospital Course Hospital Course: Date of admission: 12/27/2021 Date of discharge: 12/29/2021 Heavenly Morales is a 31-year-old male with a history of hypertension, hyperlipidemia, migraines, and IBS who presented to the emergency department on 12/27/2021 with complaints of abdominal pain. On presentation to the ED, his vital signs are stable, he was afebrile, white blood cell count elevated at 14.4, additional laboratory workup unremarkable, and CT of the abdomen/pelvis was concerning for acute diverticulitis. Patient was admitted to the hospitalist service for further evaluation and management and was seen in consultation by General surgery. Please see above for further details. Patient had symptomatic improvement with antibiotics, analgesics, supportive care. He was able to advance to a low-fiber diet which he will continue until outpatient follow-up with General surgery. Given the patient's overall improvement, he was determined to no longer require inpatient care and was discharged in hemodynamically stable condition on 12/29/2021. Patient comfortable with plans for discharge home. Discussed with him worrisome signs and symptoms for which to return and educated on his medications. Patient aware of need for follow-up. Status at Discharge Functional status at discharge: independent ambulation Overall status at discharge: patient is progressing back to baseline Time Spent with Patient Time attestation: Total time spent providing and/or coordinating discharge services: 40 minutes Time spent: Greater than 30 minutes Exam Narrative: General: ? Well-nourished, well-appearing 31-year-old male,? sitting up in a chair, comfortable, NARD Neuro: awake, alert and oriented x4, speech clear, no focal neuro deficits noted HEENMT:? n
== END 2021-12-29 14:45 | disposition home or self-care (01) ==
LOC: ANHED 07:23 → ANH3MEDSUR 09:25
PROVIDERS: Nurse Practitioner; Physician Assistant; Surgery; Admitting Provider Family Medicine; Emergency Provider Emergency Medicine; PCP Nurse Practitioner Family; Visit Provider Family Medicine
DX: K57.20 Diverticulitis of large intestine with perforation and abscess without bleeding (principal); G43.909 Migraine, unspecified, not intractable, without status migrainosus; I10 Essential (primary) hypertension; E87.6 Hypokalemia; E80.6 Other disorders of bilirubin metabolism; K58.9 Irritable bowel syndrome, unspecified; D72.829 Elevated white blood cell count, unspecified; Z20.822 Contact with and (suspected) exposure to COVID-19; Z79.1 Long term (current) use of non-steroidal anti-inflammatories (NSAID); Z82.49 Family history of ischemic heart disease and other diseases of the circulatory system; Z84.89 Family history of other specified conditions
CPT/HCPCS: 36415; 74177; 80048; 80053; 80061; 80076; 81001; 83605; 83690; 83735; 84443; 85025; 85055; 96361; 96365; 96366; 96375; 96376; 99285; A9270; C9803; G0378; J0131; J1170; J1885; J2405; J2543; J7030; Q9967; U0003; U0005

== ENCOUNTER 2021-12-29 22:57 | Inpatient (IN) | payer BC, SELFPAY ==
--- NOTE | ~2021-12-29 | CT_ITS ---
EXAMINATION: CT guide absc cath placement DATE: 01/03/2022 13:09 INDICATION: Perisigmoid abscess. TECHNIQUE: The procedure including the risks, benefits, and alternatives was discussed with the patie nt. Risks discussed included bleeding and infection. The patient understood the risks and benefits an d agreed to proceed. The skin overlying the abdomen was prepped and draped in usual sterile fashion. Anesthetic was administered with 1% lidocaine subcutaneously. An 18 gauge trochar needle was inserte d into the perisigmoid abscess with CT guidance. The needle was exchanged over a wire for 6 Austrian, 8 Austrian, and 9 Austrian dilators and then for an 8.5 Austrian pigtail catheter. The catheter was stitched to the skin, and a sterile dressing was applied. The mA was adjusted according to patient size. Iter ative reconstruction technique was employed. The dose-length product was 157.08 mGy-cm. There were no immediate complications. FINDINGS: CT images demonstrate the catheter within the perisigmoid abscess. 5 mL fluid was aspirated for testing. IMPRESSION: 1. Successful CT-guided perisigmoid abscess drainage. 2. 5 mL opaque, castañeda fluid was sent for aerobic and anaerobic cultures. Reviewed, dictated and finalized at location A.
--- NOTE | ~2021-12-29 | CT_ITS ---
EXAMINATION: CT abdomen pelvis w con DATE: 12/30/2021 00:15 INDICATION: Left lower quadrant abdominal pain. Nausea. TECHNIQUE: Computed tomography (CT) of the abdomen and pelvis was performed with 100 mL Omnipaque 350 intravenous contrast. Automated exposure control and iterative reconstruction technique were employe d. The dose-length product was 1157.48 mGy-cm. COMPARISON: CT abdomen and pelvis 12/27/2021 FINDINGS: The visualized portions of the lung bases demonstrate mild atelectasis. No pleural effusion . The heart size is normal. No pericardial effusion. The liver, gallbladder, spleen, pancreas, adrena l glands, and kidneys are normal. There are no dilated loops of bowel. There are diverticula in the c olon. There is fat stranding around a sigmoid diverticulum. There are foci of free intraperitoneal ga s around the sigmoid colon and in the anterior abdomen and under the diaphragm. The appendix is amber l. There are no pathologically enlarged lymph nodes. There is trace pelvic ascites. There is mild tho racolumbar spondylosis. IMPRESSION: 1. Worsened acute sigmoid diverticulitis with worsened small volume of free intraperitoneal gas. No d rainable abscess. Reviewed, dictated and finalized at location A. IMPRESSION: 1. Worsened acute sigmoid diverticulitis with worsened small volume of free int raperitoneal gas. No drainable abscess.
--- NOTE | ~2021-12-29 | CT_ITS ---
EXAMINATION: CT abdomen pelvis w con DATE: 01/02/2022 13:43 INDICATION: TECHNIQUE: Computed tomography (CT) of the abdomen and pelvis was performed with 100 cc Omnipaque 350 intravenous contrast. The dose-length product was 1044.71 mGy-cm. Automated exposure control and ite rative reconstruction technique were employed. COMPARISON: CT dated 12/30/2021. FINDINGS: There is dependent atelectasis. Heart size normal. No significant pleural or pericardial ef fusion. The liver, spleen, pancreas, adrenal glands and kidneys are unremarkable. There is persistent free intraperitoneal air adjacent to the sigmoid colon. There is moderate surrounding phlegmonous ch kev. There is a new walled off fluid collection with air-fluid level in the left pelvis anterior to the sigmoid colon measuring 2.7 x 3.6 x 5.4 cm, consistent with abscess. There is a second smaller ab scess located more centrally measuring 2.5 x 2.2 cm also containing air-fluid level. Nonobstructive b owel gas pattern. The bladder is decompressed, although there is possible mild bladder wall thickenin g which may be secondary to adjacent inflammatory change. Gallbladder is present. Mild lumbar spondyl osis. IMPRESSION: 1. Persistent sigmoid diverticulitis with evidence for perforation with free intraperitoneal gas and interval development of multiloculated abscess in the pelvis anterior to the colon. Reviewed, dictated and finalized at location A. IMPRESSION: 1. Persistent sigmoid diverticulitis with evidence for perforation with free in traperitoneal gas and interval development of multiloculated abscess in the pel vis anterior to the colon.
[2021-12-29 23:18] VITALS: BP 131/90; PULSE 99; RESP 24; TEMP 37.1; O2SAT 100
[2021-12-29 23:44] LABS: Basophils Absolute Auto 0.1 K/mm3 (0.0-0.1); Basophils Percent Auto 0.6 % (0.2-1.2); Eosinophils Absolute Auto 0.1 K/mm3 (0-0.3); Eosinophils Percent Auto 1.1 % (0-4.4); Hematocrit 39.8 % (42.0-52.0); Hemoglobin 13.5 g/dL (14.0-18.0); Immature Granulocyte Absolute 0.07 K/mm3 (0.00-0.031); Immature Granulocyte Percent A 0.6 % (0-0.5); Lymphocytes Absolute Auto 2.77 K/mm3 (0.9-3.2); Lymphocytes Percent Auto 22.2 % (18.3-44.2); Mean Corpuscular HGB Conc 33.9 g/dl (32-36); Mean Corpuscular Hemoglobin 29.1 pg (26-34); Mean Corpuscular Volume 85.8 fl (80-100); Mean Platelet Volume 9.5 fl (7.4-10.4); Monocytes Absolute Auto 1.5 K/mm3 (0.1-0.6); Monocytes Percent Auto 11.7 % (2.6-8.5); Neutrophils Percent Auto 63.8 % (45.5-73.1); Platelet Count Result 279 k/mm3 (150-375); Red Blood Count 4.64 M/mm3 (4.6-6.20); Red Cell Distribution Width 12.3 % (11.5-14.5); White Blood Count 12.5 K/mm3 (4.5-10.0)
[2021-12-29 23:53] LABS: Alanine Aminotransferase 32 U/L (6-50); Albumin Level 4.5 g/dL (3.5-5.1); Alkaline Phosphatase 112 U/L (38-126); Anion Gap 15 mmol/L (8-16); Aspartate Amino Transferase 31 U/L (17-59); Bilirubin,Total 1.1 mg/dL (0.2-1.3); Blood Urea Nitrogen 8 mg/dL (9-20); Calcium 9.1 mg/dL (8.4-10.2); Carbon Dioxide 25 mmol/L (22-30); Chloride 101 mmol/L (98-107); Estimated CRCL calculation 131 ml/min; Estimated Glomerular Filt Rate > 60; Glucose 109 mg/dL (65-110); Lipase 33 U/L (23-300); Potassium 3.6 mmol/L (3.4-5.0); Sodium 141 mmol/L (137-145)
[2021-12-30] VITALS (9 sets, daily range): BP systolic 129–154; BP diastolic 72–96; PULSE 67–117; RESP 16–20; TEMP 36.4–38.3; O2SAT 99–100; BMI 37.0
--- NOTE | 2021-12-30 00:03 | ED.ABDPAIN ---
HPI - Abdominal Pain General Chief Complaint: Abdominal Pain Stated Complaint: ABD pain Time Seen by Provider: 12/29/21 23:54 History of Present Illness HPI narrative: 31-year-old male presents to the emergency room for reevaluation of left lower quadrant abdominal pain. Patient states he was seen here 4 days ago and diagnosed with diverticulitis with a small perforation. Patient was admitted for observation. States on Thursday he was on a clear liquid diet, and was allowed to progress to a full diet earlier today. Patient was instructed to return to the emergency room if you develop severe pain. Related Data Home Medications Medication Instructions Recorded Confirmed acetaminophen 500 mg tablet 1,000 mg PO Q6H PRN Migraines 12/27/21 12/27/21 (Acetaminophen Extra Strength) Allergies Allergy/AdvReac Type Severity Reaction Status Date / Time No Known Allergies Allergy Verified 12/27/21 10:27 Review of Systems Review of Systems: CONSTITUTIONAL: Denies fever, chills, or sweats. EYES: Denies visual changes, redness, or discharge. ENT: Denies rhinorrhea, congestion, sore throat, or otalgia. CARDIOVASCULAR: Denies chest pain, palpitations, or edema. RESPIRATORY: Denies cough or dyspnea. GASTROINTESTINAL: Reports left lower quadrant abdominal pain GENITOURINARY: Denies dysuria or hematuria. SKIN: Denies rash or itching. MUSCULOSKELETAL: Denies back pain, joint pain, or myalgia. NEUROLOGIC: Denies headache, numbness, dizziness, or weakness. PSYCHIATRIC: Denies anxiety or depression. [facility] Past Medical History Medical History (Updated 12/30/21 @ 01:01 by Home Lowry APRN) Hyperlipidemia Hypertension Irritable bowel syndrome Migraines Surgical History Surgical History (Updated 12/27/21 @ 14:42 by Catrina Gonzalez NP) No pertinent past surgical history Family History Family History (Updated 12/27/21 @ 14:44 by Catrina Gonzalez NP) Mother Hypertension COPD (chronic obstructive pulmonary disease) Hyperlipidemia Seizure Cerebrovascular accident Father Hyperlipidemia Social History Social History (Updated 12/27/21 @ 14:47 by Catrina Gonzalez NP) Social History: 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 He has some fiancee. Patient is a lifelong nonsmoker does not drink use marijuana or illicit drugs. He does not have a durable power employee benefits attorney for healthcare. Code status full code Smoking status: Never smoker Alcohol intake: former Substance use: never Spiritual care concerns: No Exam Narrative: GENERAL: Well-appearing, well-nourished, no physical limitations, and in no acute distress. HEAD: Normocephalic, atraumatic. EYES: Conjunctivae normal, PERRLA and EOMI. CHEST: Clear to auscultation. No respiratory distress. No wheezes rales or rhonchi. No tenderness. HEART: Regular rate and rhythm. No murmur heard. Normal peripheral pulses. ABDOMEN: Soft, LLQ/suprapubic tenderness, nondistended, normal active bowel sounds. BACK: No CVA tenderness EXTREMITIES: Normal range of motion. No edema. No clubbing or cyanosis SKIN: Warm, dry, no rash. No noted wounds NEURO: No focal deficits. Alert and oriented x3. MAEW. CN's II-XI intact bilaterally, normal gait PSYCH: Cooperative. Normal mood and affect. Course Course Emergency Course: 1300: Discussed case with Dr. Kemp. He recommends admitting the patient overnight for more IV antibiotics. Vital Signs Vital signs: Vital Signs Temperature 37.1 C 12/29/21 23:18 Pulse Rate 99 12/29/21 23:18 Respiratory Rate 24 H 12/29/21 23:18 Blood Pressure 131/90 12/29/21 23:18 Pulse Oximetry 100 12/29/21 23:18 Oxygen Delivery Room Air 12/29/21 23:18 Temperature 37.1 C 12/29/21 23:18 Pulse Rate 99 12/29/21 23:18 Respiratory Rate 24 H 12/29/21 23:18 Blood Pressure 131/90 12/29/21 23:18 Pulse Oximetry 100 12/29/21 23:18 Oxygen Delivery Room Air 12/29/21 23:18 MDM - Abdominal Pain Lab Data Resul
[2021-12-30] MEDS: SODIUM CHLORIDE 0.9% IV 1,000 ML 999 ML IV CONT (00:28)
[2021-12-30 00:56] LABS: Add Urine Microscopic? YES; Appearance Urine Clear (Clear); Bilirubin Urine Negative (Negative); Blood Urine 2+ (Negative); Color Urine Yellow (Yellow); Glucose Urine UA Negative (Negative); Ketones Urine 2+ mg/dL (Negative); Leukocyte Esterase Ur Negative LEU/UL (Negative); Nitrate Urine Negative (Negative); Protein Urine Negative (Negative); Urobilinogen Urine 0.2 mg/dL (<2.0)
[2021-12-30 00:59] LABS: Mucus Urine Rare /lpf
--- NOTE | 2021-12-30 02:02 | ADMGEN ---
This patient, Heavenly Morales, was admitted to Medical Room 261-01. Patient/family oriented to hospital policies and general routines including ID bracelet, bed and alarms, visiting hours, pain management, procedures, bathroom and other care routines, personal items, smoking policy, room service/diet, and visiting hours. Information on how to activate the Rapid Response Team has been discussed. Patient/Family are encouraged to report perceived risks to care and to ask questions if they do not understand what they are told or what they should do.
[2021-12-30] MEDS: SODIUM CHLORIDE 0.9% IV 1,000 ML 125 ML IV CONT ×3 (02:48→20:25)
[2021-12-30] MEDS: ACETAMINOPHEN 500 MG TABLET 1000 MG PO (03:19)
--- NOTE | 2021-12-30 08:28 | PM.IMHP ---
H&P: HPI History of Present Illness Date/Time: 12/30/21 08:28 [facility] Past Medical History Medical History (Updated 12/30/21 @ 01:01 by Home Lowry APRN) Hyperlipidemia Hypertension Irritable bowel syndrome Migraines Surgical History Surgical History (Updated 12/27/21 @ 14:42 by Catrina Gonzalez NP) No pertinent past surgical history Family History Family History Mother Hypertension COPD (chronic obstructive pulmonary disease) Hyperlipidemia Seizure Cerebrovascular accident Father Hyperlipidemia Social History Social History (Updated 12/27/21 @ 14:47 by Catrina Gonzalez NP) Social History: 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 He has some fiancee. Patient is a lifelong nonsmoker does not drink use marijuana or illicit drugs. He does not have a durable power assistant district attorney for healthcare. Code status full code Smoking status: Never smoker Alcohol intake: never Substance use: never Spiritual care concerns: No Meds Home Medications and Allergies Home Medications Medication Instructions Recorded Confirmed Type acetaminophen 500 mg tablet 1,000 mg PO Q6H PRN Migraines 12/27/21 12/30/21 History (Acetaminophen Extra Strength) levofloxacin 750 mg tablet 750 mg PO DAILY #7 tabs 12/29/21 12/30/21 Rx metronidazole 500 mg tablet 500 mg PO Q8H 7 days #21 tabs 12/29/21 12/30/21 Rx Allergies Allergy/AdvReac Type Severity Reaction Status Date / Time No Known Allergies Allergy Verified 12/27/21 10:27 Vital Signs Vital Signs - 24 hr 12/29/21 23:18 12/30/21 01:00 12/30/21 01:30 Temperature 98.7 F 98.3 F 98.3 F Pulse Rate 99 105 H 82 Respiratory Rate 24 H 16 16 Blood Pressure 131/90 140/89 154/96 H Pulse Oximetry 100 100 100 Oxygen Delivery Room Air 12/30/21 03:19 12/30/21 02:50 12/30/21 01:49 Temperature 101.0 F H 101.0 F H Pulse Rate 117 H Respiratory Rate 20 Blood Pressure 142/78 H Pulse Oximetry 99 Oxygen Delivery Room Air 12/30/21 04:29 Temperature 98.4 F Pulse Rate Respiratory Rate Blood Pressure Pulse Oximetry Oxygen Delivery H&P: Results Labs Labs: Short CBC 12/29/21 Range/Units 23:29 WBC 12.5 H (4.5-10.0) K/mm3 Hgb 13.5 L (14.0-18.0) g/dL Hct 39.8 L (42.0-52.0) % Plt Count 279 D (150-375) k/mm3 BMP 12/29/21 23:29 Sodium 141 Potassium 3.6 Chloride 101 Carbon Dioxide 25 BUN 8 L Creatinine 0.80 Glucose 109 Calcium 9.1 Liver Function 12/29/21 Range/Units 23:29 Total Bilirubin 1.1 (0.2-1.3) mg/dL AST 31 (17-59) U/L ALT 32 (6-50) U/L Alkaline Phosphatase 112 (38-126) U/L Albumin 4.5 (3.5-5.1) g/dL Urine 12/30/21 Range/Units 00:30 Urine Color Yellow (Yellow) Urine Appearance Clear (Clear) Urine pH 7.0 (5.0-9.0) Ur Specific [place] 1.010 (1.001-1.035) Urine Protein Negative (Negative) mg/dL Urine Glucose (UA) Negative (Negative) mg/dL
[2021-12-30] MEDS: FAMOTIDINE 20 MG/2 ML VIAL IV PUSH ×2 (08:54→20:22)
--- NOTE | 2021-12-30 09:31 | PM.IMHP ---
H&P: HPI History of Present Illness Date/Time: 12/30/21 09:31 Chief Complaint: Lower abdominal pain Narrative: This is a 31-year-old man who was recently admitted for acute sigmoid diverticulitis with microperforation from 12/27/21 through 12/29/21 when he was discharged in the afternoon. He improved during his hospitalization and his abdominal pain had improved significantly. He was slowly advanced to a low fiber diet. He was discharged home with Levaquin and Flagyl yesterday but did not take any of the medications prior to coming back into the ER. He reports going home and doing well. He ate grilled chicken and cooked carrots for dinner. Shortly after, while sitting in the chair, he had a sudden onset of acute suprapubic pain. He tried to go to the bathroom and had a small bowel movement and passed lots of gas. The abdominal pain persisted and he came back into the ER for evaluation. WBC was about the same as yesterday at 12,500. He did have a fever of 101F around 3:00 am this morning. Repeat CT scan of the abdomen/pelvis showed worsening sigmoid diverticulitis with more inflammation and increase in free intraperitoneal gas. He is now admitted in this setting and has been started on IV Zosyn. He is currently NPO except ice chips. The patient is seen on the medical floor. He received Tylenol earlier this morning but this was for the fever not pain. He feels his pain has improved and is well controlled at this time. No nausea or bloating. Review of Systems Review of Systems: All systems reviewed & are unremarkable except as noted in HPI and below Constitutional: Constitutional: Reports as per HPI, Reports chills, Denies fatigue, Reports fever(s), Denies headache(s) and Denies poor appetite Eyes: Eyes: Reports no additional eye complaints ENT: Reports system reviewed and no additional complaints, except as documented Cardiovascular: Cardiovascular: Reports no additional cardiovascular complaints, Denies chest pain and Denies leg edema Respiratory: Respiratory: Reports no additional respiratory complaints, Denies cough and Denies dyspnea Gastrointestinal: Gastrointestinal: Reports as per HPI, Reports no additional gastrointestinal complaints, Reports abdominal pain, Denies melena, Denies hematochezia, Denies constipation, Denies diarrhea, Reports nausea (in the ER, which has subsided) and Denies vomiting Genitourinary: Genitourinary: Reports no additional male genitourinary complaints, Denies hematuria, Denies dysuria and Denies urinary frequency Musculoskeletal: Musculoskeletal: Reports no additional musculoskeletal complaints Integumentary/Breasts: Skin/Breast: Reports system reviewed and no additional complaints, except as docu Neurologic: Reports system reviewed and no additional complaints, except as documented, Denies dizziness, Denies focal weakness, Denies numbness and Denies tingling PMFSH Past Medical History Medical History Hyperlipidemia Hypertension Irritable bowel syndrome Migraines Surgical History Surgical History No pertinent past surgical history Family History Family History Mother Hypertension COPD (chronic obstructive pulmonary disease) Hyperlipidemia Seizure Cerebrovascular accident Father Hyperlipidemia Social History Social History Social History: 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 He has some fiancee. Patient is a lifelong nonsmoker does not drink use marijuana or illicit drugs. He does not have a durable power bias cutter for healthcare. Code status full code Smoking status: Never smoker Alcohol intake: never Substance use: never Spiritual care concerns: No Meds Home Medications and Allergies Home Medications Medication Instructions Recorded Co
[2021-12-30 10:17] LABS: Anion Gap 13 mmol/L (8-16); Blood Urea Nitrogen 6 mg/dL (9-20); Calcium 8.6 mg/dL (8.4-10.2); Carbon Dioxide 24 mmol/L (22-30); Chloride 103 mmol/L (98-107); Estimated CRCL calculation 152 ml/min; Estimated Glomerular Filt Rate > 60; Glucose 103 mg/dL (65-110); Potassium 3.5 mmol/L (3.4-5.0); Sodium 140 mmol/L (137-145)
[2021-12-30 10:24] LABS: Basophils Absolute Auto 0.1 K/mm3 (0.0-0.1); Basophils Percent Auto 0.5 % (0.2-1.2); Eosinophils Percent Auto 0.2 % (0-4.4); Hematocrit 35.8 % (42.0-52.0); Hemoglobin 12.1 g/dL (14.0-18.0); Immature Granulocyte Absolute 0.04 K/mm3 (0.00-0.031); Immature Granulocyte Percent A 0.3 % (0-0.5); Lymphocytes Absolute Auto 1.56 K/mm3 (0.9-3.2); Lymphocytes Percent Auto 11.8 % (18.3-44.2); Mean Corpuscular HGB Conc 33.8 g/dl (32-36); Mean Corpuscular Hemoglobin 29.2 pg (26-34); Mean Corpuscular Volume 86.5 fl (80-100); Mean Platelet Volume 9.7 fl (7.4-10.4); Monocytes Absolute Auto 1.2 K/mm3 (0.1-0.6); Neutrophils Absolute Auto 10.3 K/mm3 (1.3-6.7); Neutrophils Percent Auto 78.2 % (45.5-73.1); Platelet Count Result 262 k/mm3 (150-375); Red Blood Count 4.14 M/mm3 (4.6-6.20); Red Cell Distribution Width 12.2 % (11.5-14.5); White Blood Count 13.2 K/mm3 (4.5-10.0)
[2021-12-30] MEDS: IBUPROFEN 400 MG TABLET PO ×2 (13:14→18:19)
[2021-12-31] VITALS: BP 151/86; PULSE 91; RESP 16; TEMP 36.4; O2SAT 100
[2021-12-31] MEDS: IBUPROFEN 400 MG TABLET PO ×5 (00:55→23:33)
[2021-12-31 05:46] LABS: Basophils Absolute Auto 0.1 K/mm3 (0.0-0.1); Basophils Percent Auto 0.5 % (0.2-1.2); Eosinophils Absolute Auto 0.2 K/mm3 (0-0.3); Eosinophils Percent Auto 2.3 % (0-4.4); Hemoglobin 11.4 g/dL (14.0-18.0); Immature Granulocyte Absolute 0.05 K/mm3 (0.00-0.031); Immature Granulocyte Percent A 0.5 % (0-0.5); Lymphocytes Absolute Auto 1.83 K/mm3 (0.9-3.2); Lymphocytes Percent Auto 20.1 % (18.3-44.2); Mean Corpuscular HGB Conc 33.5 g/dl (32-36); Mean Corpuscular Hemoglobin 29.5 pg (26-34); Mean Corpuscular Volume 88.1 fl (80-100); Mean Platelet Volume 9.6 fl (7.4-10.4); Monocytes Absolute Auto 1.1 K/mm3 (0.1-0.6); Monocytes Percent Auto 11.8 % (2.6-8.5); Neutrophils Absolute Auto 5.9 K/mm3 (1.3-6.7); Neutrophils Percent Auto 64.8 % (45.5-73.1); Platelet Count Result 259 k/mm3 (150-375); Red Blood Count 3.86 M/mm3 (4.6-6.20); Red Cell Distribution Width 12.3 % (11.5-14.5); White Blood Count 9.1 K/mm3 (4.5-10.0)
[2021-12-31 06:17] VITALS: BP 144/85; PULSE 85; RESP 16; TEMP 36.7; O2SAT 100
[2021-12-31] MEDS: SODIUM CHLORIDE 0.9% IV 1,000 ML 125 ML IV CONT ×3 (06:18→23:47)
[2021-12-31 08:00] VITALS: BP 133/83; PULSE 69; RESP 16; TEMP 36.7; O2SAT 100
--- NOTE | 2021-12-31 08:24 | PM.PNGS ---
Progress Note: A&P Assessment and Plan (1) Diverticulitis of colon with perforation: Code(s): K57.20 - Diverticulitis of large intestine with perforation and abscess without bleeding Status: Acute Assessment and Plan: Patient continues to make progress. His white blood cell count is down to normal today. He had 3 bowel movements since yesterday morning. These are still somewhat loose but his discomfort while having them in left lower quadrant is less. He states he periodically has some cramping in the left lower abdomen but no generalized abdominal pain and he has not run a fever while in the hospital now. Will resume diet with full liquids Continue IV antibiotics but add oral Metronidazole starting this afternoon so that he knows how to take it well. Discussed low-fiber diet while he is on antibiotics. If doing well may consider discharge tomorrow on low-fiber diet with Levaquin and Flagyl for antibiotics. Discussed with patient probable repeat CT scan of the abdomen and pelvis with contrast at about the time her just before he should be finishing his antibiotics at home. (2) Migraines: Code(s): G43.909 - Migraine, unspecified, not intractable, without status migrainosus Status: Acute Assessment and Plan: No complaints of headache today. (3) Hypertension: Code(s): I10 - Essential (primary) hypertension Status: Acute Assessment and Plan: Still running borderline but not significantly high. Will encourage patient to stay on a low-salt diet also and work on losing weight upon discharge. Subjective Subjective Date/Time Seen: 12/31/21 08:24 Patient reports: no new complaints, flatus and bowel movement Review of Systems Review of Systems: All systems reviewed & are unremarkable except as noted in HPI and below Constitutional: Constitutional: Reports as per HPI, Denies chills and Denies fever(s) Cardiovascular: Cardiovascular: Denies chest pain and Denies dyspnea Respiratory: Respiratory: Reports no additional respiratory complaints and Denies dyspnea Gastrointestinal: Gastrointestinal: Reports as per HPI and Denies bloating Musculoskeletal: Musculoskeletal: Reports no additional musculoskeletal complaints Neurologic: Denies memory loss Psychiatric: Psychiatric: Denies anxiety and Denies memory loss Exam Const: General: cooperative, comfortable, alert and awake Orientation/consciousness: patient oriented x3 HENMT: Head: normal to inspection Mouth: Yes moist mucous membranes Eyes: Sclera: sclerae normal Pupils: Equal, round and reactive pupils present Neck: Neck: normal visual inspection and no JVD Chest: Chest palpation & inspection: normal inspection of the chest Resp: Effort & Inspection: normal respiratory effort Auscultation: clear to auscultation bilaterally GI: Inspection: normal to inspection, obesity and no visible herniation GI Palp: Yes abdominal tenderness ( Mainly suprapubic and left lower quadrant), No Guarding due to palpation present (GI), No Rigid due to palpation and No Hernia present Auscultation: normal bowel sounds Rectal Exam: deferred Neuro: General: patient oriented x3 Objective Data Vital Signs Vital Signs: Vital Signs - 24 hr 12/30/21 09:30 12/30/21 12:00 12/30/21 16:00 Temperature 37.1 C 36.9 C Pulse Rate 90 90 Respiratory Rate 20 20 Blood Pressure 135/83 134/72 Pulse Oximetry 100 99 Oxygen Delivery Room Air 12/30/21 20:58 12/30/21 20:20 12/31/21 00:00 Temperature 36.6 C 36.4 C Pulse Rate 67 91 Respiratory Rate 16 16 Blood Pressure 129/74 151/86 H Pulse Oximetry 100 100 Oxygen Delivery Room Air 12/31/21 06:17 Temperature 36.7 C Pulse Rate 85 Respiratory Rate 16 Blood Pressure 144/85 H Pulse Oximetry 100 Oxygen Delivery Intake/Output Intake/Output: Intake & Output 12/28/21 12/29/21 12/30/21 12/31/21 23:59 23:59 23:59 23:59 Intake Total 3940 1150 Output To
[2021-12-31] MEDS: metroNIDAZOLE 250 MG TABLET 500 MG PO ×3 (09:18→21:21)
[2021-12-31] MEDS: FAMOTIDINE 20 MG TABLET PO ×2 (09:18→21:21)
[2021-12-31 12:00] VITALS: BP 144/70; PULSE 91; RESP 16; TEMP 36.8; O2SAT 99
[2021-12-31 16:00] VITALS: BP 140/60; PULSE 88; RESP 16; TEMP 36.4; O2SAT 100
[2021-12-31 19:45] VITALS: BP 126/86; PULSE 78; RESP 16; TEMP 37.1; O2SAT 100
[2022-01-01] VITALS: BP 118/61; PULSE 72; RESP 14; TEMP 36.6; O2SAT 98
[2022-01-01 05:34] LABS: Basophils Absolute Auto 0.1 K/mm3 (0.0-0.1); Basophils Percent Auto 0.6 % (0.2-1.2); Eosinophils Absolute Auto 0.2 K/mm3 (0-0.3); Eosinophils Percent Auto 2.2 % (0-4.4); Hematocrit 33.7 % (42.0-52.0); Hemoglobin 11.2 g/dL (14.0-18.0); Immature Granulocyte Absolute 0.07 K/mm3 (0.00-0.031); Immature Granulocyte Percent A 0.7 % (0-0.5); Lymphocytes Absolute Auto 1.75 K/mm3 (0.9-3.2); Lymphocytes Percent Auto 17.6 % (18.3-44.2); Mean Corpuscular HGB Conc 33.2 g/dl (32-36); Mean Corpuscular Hemoglobin 29.2 pg (26-34); Mean Corpuscular Volume 87.8 fl (80-100); Mean Platelet Volume 9.4 fl (7.4-10.4); Monocytes Absolute Auto 1.3 K/mm3 (0.1-0.6); Monocytes Percent Auto 12.8 % (2.6-8.5); Neutrophils Absolute Auto 6.6 K/mm3 (1.3-6.7); Neutrophils Percent Auto 66.1 % (45.5-73.1); Platelet Count Result 250 k/mm3 (150-375); Red Blood Count 3.84 M/mm3 (4.6-6.20); Red Cell Distribution Width 12.4 % (11.5-14.5)
[2022-01-01 05:43] LABS: Anion Gap 13 mmol/L (8-16); Blood Urea Nitrogen 8 mg/dL (9-20); Calcium 8.3 mg/dL (8.4-10.2); Carbon Dioxide 26 mmol/L (22-30); Chloride 102 mmol/L (98-107); Estimated CRCL calculation 134 ml/min; Estimated Glomerular Filt Rate > 60; Glucose 93 mg/dL (65-110); Potassium 3.4 mmol/L (3.4-5.0); Sodium 141 mmol/L (137-145)
[2022-01-01] MEDS: metroNIDAZOLE 250 MG TABLET 500 MG PO ×3 (06:15→22:45)
[2022-01-01] MEDS: IBUPROFEN 400 MG TABLET PO ×3 (06:15→17:10)
[2022-01-01 06:32] VITALS: BP 143/87; PULSE 73; RESP 16; TEMP 36.4; O2SAT 100
[2022-01-01 08:00] VITALS: BP 130/60; PULSE 85; RESP 16; TEMP 36.8; O2SAT 96
[2022-01-01] MEDS: FAMOTIDINE 20 MG TABLET PO ×2 (08:27→22:45)
--- NOTE | 2022-01-01 09:34 | PM.PNGS ---
Progress Note: A&P Assessment and Plan (1) Diverticulitis of colon with perforation: Code(s): K57.20 - Diverticulitis of large intestine with perforation and abscess without bleeding Status: Acute Assessment and Plan: Patient slowly improving. He is having more abdominal pain this morning after a BM but also feels like gas pains could be contributing. Pain is currently controlled with oral Ibuprofen that is scheduled. Will add simethicone. WBC normal again today, he is afebrile. Continue full liquids again today. Will consult the dietitian for recommendations of supplement options. Will advance to low fiber tomorrow morning. Stop IV fluids. Tolerating oral metronidazole, stop IV Zosyn after today's noon dose, start oral Levaquin this evening. Repeat labs again tomorrow. May be able to d/c tomorrow. Will plan on setting him up for a CT scan as an outpatient next week prior to follow-up once able to discharge. (2) Migraines: Code(s): G43.909 - Migraine, unspecified, not intractable, without status migrainosus Status: Acute Assessment and Plan: No complaints of headache today. (3) Hypertension: Code(s): I10 - Essential (primary) hypertension Status: Acute Assessment and Plan: BP stable throughout the day yesterday, slightly elevated this morning but also having more pain this morning. Continue to monitor. Will encourage patient to stay on a low-salt diet also and work on losing weight upon discharge. Plan I have discussed the patient's case and plan of care with Dr. Kemp. Subjective Subjective Date/Time Seen: 01/01/22 09:34 Patient reports: still having pain (LLQ), tolerating liquids well (full liquids), flatus, bowel movement (3 small loose BMs this morning) and afebrile Interval history: Patient seen and examined. Reports waking up feeling well this morning, but had some increased LLQ and suprapubic pain after having his first BM this morning. No nausea, vomiting, or bloating. He does feel his abdominal pain is worse today than yesterday after the bowel movement. He reports also having some intermittent gas pains as well. Review of Systems Review of Systems: All systems reviewed & are unremarkable except as noted in HPI and below Exam Const: General: comfortable, no acute distress and awake Orientation/consciousness: patient oriented x3 GI: Inspection: non-distended GI Palp: Yes Soft to palpation, Yes Tenderness to palpation present (GI) (across lower abdomen L>R, LUQ), No Guarding due to palpation present (GI), Yes No hepatosplenomegaly present and No Rebound tenderness present Auscultation: normal bowel sounds Psych: Mental Status: mental status grossly normal Insight: Good insight present (Psych) Objective Data Vital Signs Vital Signs: Vital Signs - 24 hr 12/31/21 12:00 12/31/21 16:00 12/31/21 19:45 Temperature 98.3 F 97.6 F 98.8 F Pulse Rate 91 88 78 Respiratory Rate 16 16 16 Blood Pressure 144/70 H 140/60 126/86 Pulse Oximetry 99 100 100 01/01/22 06:32 01/01/22 00:00 Temperature 97.6 F 97.8 F Pulse Rate 73 72 Respiratory Rate 16 14 Blood Pressure 143/87 H 118/61 Pulse Oximetry 100 98 Intake/Output Intake/Output: Intake & Output 12/29/21 12/30/21 12/31/21 01/01/22 23:59 23:59 23:59 23:59 Intake Total 3940 4940 450 Output Total 2150 1400 1000 Balance 1790 3540 -550 Meds/Results Medications: Active Medications Generic Name Dose Route Start Last Admin Trade Name Freq PRN Reason Stop Dose Admin Acetaminophen 1,000 mg 12/30/21 02:53 12/30/21 03:19 Acetaminophen 500 Mg Tablet PO 1,000 mg Q6H PRN Administration Mild Pain (1-3) or Fever Hydrocodone Bitart/Acetaminophen 1 tab 12/31/21 08:20 Hydrocodone/Acetaminophen (*Crx) 5-325 Mg Tablet PO Q6H PRN Pain Rated 4-6 Famotidine 20 mg 12/31/21 09:00 01/01/22 08:27 Famotidine 20 Mg Tablet PO 20 mg Q12HR SLOAN Administration Piperaci
[2022-01-01] MEDS: SIMETHICONE 80 MG TAB.CHEW PO ×4 (11:27→22:45)
[2022-01-01 12:00] VITALS: BP 138/84; PULSE 82; RESP 16; TEMP 36.7; O2SAT 96
[2022-01-01 16:00] VITALS: BP 144/86; PULSE 77; RESP 16; TEMP 36.8; O2SAT 99
[2022-01-01] MEDS: ACETAMINOPHEN 500 MG TABLET 1000 MG PO (16:10)
[2022-01-01] MEDS: levoFLOXacin 750 MG TABLET PO (20:32)
[2022-01-01 21:09] VITALS: BP 136/84; PULSE 73; RESP 16; TEMP 36.4; O2SAT 99
[2022-01-02 00:10] VITALS: BP 138/86; PULSE 95; RESP 16; TEMP 37.7; O2SAT 99
[2022-01-02] MEDS: IBUPROFEN 400 MG TABLET PO ×2 (03:20→17:27)
[2022-01-02 05:35] LABS: Hemoglobin 12.6 g/dL (14.0-18.0); Mean Corpuscular HGB Conc 34.1 g/dl (32-36); Mean Corpuscular Hemoglobin 29.6 pg (26-34); Mean Corpuscular Volume 86.9 fl (80-100); Mean Platelet Volume 9.3 fl (7.4-10.4); Platelet Count Result 330 k/mm3 (150-375); Red Blood Count 4.26 M/mm3 (4.6-6.20); Red Cell Distribution Width 12.2 % (11.5-14.5); White Blood Count 16.2 K/mm3 (4.5-10.0)
[2022-01-02] MEDS: metroNIDAZOLE 250 MG TABLET 500 MG PO ×3 (05:50→21:56)
[2022-01-02 06:38] VITALS: BP 141/55; PULSE 72; RESP 16; TEMP 37.1; O2SAT 99
[2022-01-02 07:14] LABS: Anion Gap 11 mmol/L (8-16); Blood Urea Nitrogen 5 mg/dL (9-20); Calcium 9.1 mg/dL (8.4-10.2); Carbon Dioxide 27 mmol/L (22-30); Chloride 101 mmol/L (98-107); Estimated CRCL calculation 134 ml/min; Estimated Glomerular Filt Rate > 60; Glucose 115 mg/dL (65-110); Potassium 3.5 mmol/L (3.4-5.0); Sodium 139 mmol/L (137-145)
[2022-01-02] MEDS: SIMETHICONE 80 MG TAB.CHEW PO ×4 (08:26→21:56)
[2022-01-02] MEDS: FAMOTIDINE 20 MG TABLET PO ×2 (08:26→21:57)
[2022-01-02 10:05] VITALS: BP 132/91; PULSE 99; RESP 16; TEMP 36.7; O2SAT 99
--- NOTE | 2022-01-02 11:15 | PM.PNGS ---
Progress Note: A&P Assessment and Plan (1) Diverticulitis of colon with perforation: Code(s): K57.20 - Diverticulitis of large intestine with perforation and abscess without bleeding Status: Acute Assessment and Plan: WBC up to 16K today. Low grade fever overnight. Will order CT scan of the abdomen/pelvis today to re-evaluate. Will put patient back on IV Zosyn, leave the oral metronidazole. If CT is negative, then will possibly send home this evening on oral abx, but may require percutaneous drainage if he has developed an intra-abdominal abscess. (2) Migraines: Code(s): G43.909 - Migraine, unspecified, not intractable, without status migrainosus Status: Acute Assessment and Plan: No complaints of headache today. (3) Hypertension: Code(s): I10 - Essential (primary) hypertension Status: Acute Assessment and Plan: BP stable. Continue to monitor. Will encourage patient to stay on a low-salt diet also and work on losing weight upon discharge. Plan I have discussed the patient's case and plan of care with Dr. Kemp. Subjective Subjective Date/Time Seen: 01/02/22 10:15 Patient reports: no new complaints, pain is less, flatus, bowel movement and nausea (did have slight nausea after levaquin last night, no more nausea) Interval history: Patient seen and examined. He reports his abdominal pain has improved today. He has intermittent mild soreness in his right lower back that he associates with lying in the hospital bed. This improves when getting up and walking around. No nausea or vomiting. He reports feeling hungry but isn't eating much due to the taste of the food. He is trying Ensure clears. He had a temp of 99.1 F last night and had chills, but also has been taking scheduled ibuprofen for pain. Review of Systems Review of Systems: All systems reviewed & are unremarkable except as noted in HPI and below Exam Const: General: cooperative, no acute distress and awake Orientation/consciousness: patient oriented x3 GI: Inspection: non-distended GI Palp: Yes Soft to palpation, Yes Tenderness to palpation present (GI) (across lower abdomen, mild TTP in LUQ better than yesterday), No Guarding due to palpation present (GI) and No Rebound tenderness present Auscultation: normal bowel sounds Extrem: General: normal to inspection Psych: Mental Status: mental status grossly normal Insight: Good insight present (Psych) Objective Data Vital Signs Vital Signs: Vital Signs - 24 hr 01/01/22 12:00 01/01/22 16:00 01/01/22 21:09 Temperature 98.0 F 98.3 F 97.6 F Pulse Rate 82 77 73 Respiratory Rate 16 16 16 Blood Pressure 138/84 144/86 H 136/84 Pulse Oximetry 96 99 99 Oxygen Delivery 01/02/22 00:10 01/02/22 06:38 01/02/22 08:25 Temperature 99.9 F H 98.7 F Pulse Rate 95 72 Respiratory Rate 16 16 Blood Pressure 138/86 141/55 H Pulse Oximetry 99 99 Oxygen Delivery Room Air 01/02/22 10:05 Temperature 98.0 F Pulse Rate 99 Respiratory Rate 16 Blood Pressure 132/91 H Pulse Oximetry 99 Oxygen Delivery Intake/Output Intake/Output: Intake & Output 12/30/21 12/31/21 01/01/22 01/02/22 23:59 23:59 23:59 23:59 Intake Total 3940 4940 3120 710 Output Total 2150 1400 2400 1000 Balance 1790 3540 720 -290 Meds/Results Medications: Active Medications Generic Name Dose Route Start Last Admin Trade Name Freq PRN Reason Stop Dose Admin Hydrocodone Bitart/Acetaminophen 1 tab 12/31/21 08:20 Hydrocodone/Acetaminophen (*Crx) 5-325 Mg Tablet PO Q6H PRN Pain Rated 4-6 Famotidine 20 mg 12/31/21 09:00 01/02/22 08:26 Famotidine 20 Mg Tablet PO 20 mg Q12HR SLOAN Administration Piperacillin/Tazobactam/Dextrose 3.375 gm in 50 mls @ 100 mls/hr 01/02/22 11:15 Zosyn 3.375 Gm/D5w 50ml Pm IVPB Q6H SLOAN Ibuprofen 400 mg 01/02/22 09:27 Ibuprofen 400 Mg Tablet PO PRN PRN Pain Rated 1-3 Metronidazole 500 mg
[2022-01-02 14:00] VITALS: BP 140/92; PULSE 96; RESP 16; TEMP 37.3; O2SAT 100
[2022-01-02 14:55] LABS: Basophils Absolute Auto 0.1 K/mm3 (0.0-0.1); Basophils Percent Auto 0.4 % (0.2-1.2); Eosinophils Absolute Auto 0.1 K/mm3 (0-0.3); Eosinophils Percent Auto 0.4 % (0-4.4); Hematocrit 38.2 % (42.0-52.0); Hemoglobin 13.1 g/dL (14.0-18.0); Immature Granulocyte Absolute 0.14 K/mm3 (0.00-0.031); Immature Granulocyte Percent A 0.9 % (0-0.5); Lymphocytes Absolute Auto 1.73 K/mm3 (0.9-3.2); Lymphocytes Percent Auto 10.8 % (18.3-44.2); Mean Corpuscular HGB Conc 34.3 g/dl (32-36); Mean Corpuscular Hemoglobin 29.6 pg (26-34); Mean Corpuscular Volume 86.4 fl (80-100); Mean Platelet Volume 9.3 fl (7.4-10.4); Monocytes Absolute Auto 1.6 K/mm3 (0.1-0.6); Monocytes Percent Auto 10.2 % (2.6-8.5); Neutrophils Absolute Auto 12.4 K/mm3 (1.3-6.7); Neutrophils Percent Auto 77.3 % (45.5-73.1); Platelet Count Result 366 k/mm3 (150-375); Red Blood Count 4.42 M/mm3 (4.6-6.20); Red Cell Distribution Width 12.2 % (11.5-14.5)
[2022-01-02 18:00] VITALS: BP 138/86; PULSE 94; RESP 16; TEMP 37.1; O2SAT 100
[2022-01-02 20:16] VITALS: BP 124/69; PULSE 69; RESP 18; TEMP 35.8; O2SAT 98
[2022-01-03] MEDS: IBUPROFEN 400 MG TABLET PO ×2 (00:45→13:22)
[2022-01-03 00:48] VITALS: BP 128/69; PULSE 62; RESP 18; TEMP 36.1; O2SAT 100
[2022-01-03 03:42] VITALS: BP 105/67; PULSE 862; RESP 20; TEMP 36; O2SAT 96
[2022-01-03] MEDS: metroNIDAZOLE 250 MG TABLET 500 MG PO ×3 (06:26→20:44)
[2022-01-03 07:12] LABS: Basophils Absolute Auto 0.1 K/mm3 (0.0-0.1); Basophils Percent Auto 0.9 % (0.2-1.2); Eosinophils Absolute Auto 0.3 K/mm3 (0-0.3); Eosinophils Percent Auto 2.3 % (0-4.4); Hematocrit 38.7 % (42.0-52.0); Hemoglobin 12.8 g/dL (14.0-18.0); Immature Granulocyte Absolute 0.13 K/mm3 (0.00-0.031); Immature Granulocyte Percent A 1.2 % (0-0.5); Lymphocytes Absolute Auto 1.96 K/mm3 (0.9-3.2); Lymphocytes Percent Auto 18.4 % (18.3-44.2); Mean Corpuscular HGB Conc 33.1 g/dl (32-36); Mean Corpuscular Hemoglobin 28.9 pg (26-34); Mean Corpuscular Volume 87.4 fl (80-100); Mean Platelet Volume 9.6 fl (7.4-10.4); Monocytes Absolute Auto 1.5 K/mm3 (0.1-0.6); Neutrophils Absolute Auto 6.7 K/mm3 (1.3-6.7); Neutrophils Percent Auto 63.2 % (45.5-73.1); Platelet Count Result 384 k/mm3 (150-375); Red Blood Count 4.43 M/mm3 (4.6-6.20); Red Cell Distribution Width 12.2 % (11.5-14.5); White Blood Count 10.7 K/mm3 (4.5-10.0)
[2022-01-03 07:21] LABS: Magnesium 2.3 mg/dL (1.6-2.3)
[2022-01-03 08:13] LABS: INR 1.4; Partial Thromboplastin Time 28.2 SECONDS (22.3-36.8); Prothrombin Time 16.9 Seconds (11.1-14.7)
[2022-01-03] MEDS: SIMETHICONE 80 MG TAB.CHEW PO ×4 (08:23→20:45)
[2022-01-03] MEDS: FAMOTIDINE 20 MG TABLET PO ×2 (08:23→20:44)
[2022-01-03 10:37] VITALS: BP 132/82; PULSE 67; RESP 16; TEMP 36.3; O2SAT 99
[2022-01-03] MEDS: SODIUM CHLORIDE 0.9% IV 1,000 ML 100 ML IV CONT ×2 (10:48→20:43)
--- NOTE | 2022-01-03 12:14 | PM.PNGS ---
Progress Note: A&P Assessment and Plan (1) Diverticulitis of colon with perforation: Code(s): K57.20 - Diverticulitis of large intestine with perforation and abscess without bleeding Status: Acute Assessment and Plan: WBC back down to 10K today, with resuming patient on IV Zosyn. No fever overnight. CT scan of the abdomen/pelvis On 01/02 showed a left-sided pelvic abscess next to his sigmoid colon. (See report) this was discussed with Dr. Slater and we are planning a percutaneous drainage for sometime today. Patient continues on the the oral metronidazole. and if CT-guided drainage goes well we will plan to continue IV Zosyn times 24 hours then hopefully convert to Levaquin and Flagyl. ( Patient already has 7 days of this at home after his last discharge that he can use). I have discussed with the patient that if all goes well with his CT-guided percutaneous drainage today that perhaps he would be able to return to a low-fiber diet and be discharged sometime over the weekend. (2) Migraines: Code(s): G43.909 - Migraine, unspecified, not intractable, without status migrainosus Status: Acute Assessment and Plan: No complaints of headache today. (3) Hypertension: Code(s): I10 - Essential (primary) hypertension Status: Acute Assessment and Plan: BP stable. Continue to monitor. Will encourage patient to stay on a low-salt diet also and work on losing weight upon discharge. Subjective Subjective Date/Time Seen: 01/03/22 12:14 Patient reports: no new complaints, tolerating liquids well and flatus Interval history: He has been walking the halls without difficulty. no increase in pain overnight. Review of Systems Review of Systems: All systems reviewed & are unremarkable except as noted in HPI and below Exam Const: General: cooperative, no acute distress and awake Orientation/consciousness: patient oriented x3 GI: Inspection: non-distended GI Palp: Yes Soft to palpation, Yes Tenderness to palpation present (GI) (across lower abdomen, mild TTP in LUQ better than yesterday), No Guarding due to palpation present (GI) and No Rebound tenderness present Auscultation: normal bowel sounds Extrem: General: normal to inspection Psych: Mental Status: mental status grossly normal Insight: Good insight present (Psych) Objective Data Vital Signs Vital Signs: Vital Signs - 24 hr 01/02/22 14:00 01/02/22 18:00 01/02/22 20:16 Temperature 37.3 C 37.1 C 35.8 C L Pulse Rate 96 94 69 Respiratory Rate 16 16 18 Blood Pressure 140/92 H 138/86 124/69 Pulse Oximetry 100 100 98 Oxygen Delivery 01/03/22 00:48 01/02/22 20:15 01/03/22 03:42 Temperature 36.1 C L 36.0 C L Pulse Rate 62 862 H Respiratory Rate 18 20 Blood Pressure 128/69 105/67 Pulse Oximetry 100 96 Oxygen Delivery Room Air 01/03/22 10:37 01/03/22 08:23 Temperature 36.3 C L Pulse Rate 67 Respiratory Rate 16 Blood Pressure 132/82 Pulse Oximetry 99 Oxygen Delivery Room Air Intake/Output Intake/Output: Intake & Output 12/31/21 01/01/22 01/02/22 01/03/22 23:59 23:59 23:59 23:59 Intake Total 4940 3120 1582 220 Output Total 1400 2400 1600 800 Balance 3545 905 -56 -138 Meds/Results Medications: Active Medications Generic Name Dose Route Start Last Admin Trade Name Freq PRN Reason Stop Dose Admin Hydrocodone Bitart/Acetaminophen 1 tab 12/31/21 08:20 Hydrocodone/Acetaminophen (*Crx) 5-325 Mg Tablet PO Q6H PRN Pain Rated 4-6 Famotidine 20 mg 12/31/21 09:00 01/03/22 08:23 Famotidine 20 Mg Tablet PO 20 mg Q12HR SLOAN Administration Piperacillin/Tazobactam/Dextrose 3.375 gm in 50 mls @ 100 mls/hr 01/02/22 12:00 01/03/22 11:10 Zosyn 3.375 Gm/D5w 50ml Pm IVPB 100 mls/hr Q6HR SLOAN Administration Sodium Chloride 1,000 mls @ 100 mls/hr 01/03/22 10:40 01/03/22 10:48 Normal Saline Iv IV CONT 100 mls/hr .Q10H SLOAN Administration
[2022-01-03 13:16] VITALS: BP 143/83; PULSE 77; RESP 16; TEMP 36.8; O2SAT 99
[2022-01-03 18:00] VITALS: BP 132/79; PULSE 78; RESP 16; TEMP 36.2; O2SAT 99
[2022-01-03 20:07] VITALS: BP 117/67; PULSE 59; RESP 18; TEMP 36.2; O2SAT 99
[2022-01-04] VITALS (8 sets, daily range): BP systolic 125–136; BP diastolic 71–79; PULSE 62–79; RESP 16–20; TEMP 35.9–36.8; O2SAT 98–100
[2022-01-04] MEDS: IBUPROFEN 400 MG TABLET PO (03:24)
[2022-01-04] MEDS: metroNIDAZOLE 250 MG TABLET 500 MG PO ×3 (05:44→19:58)
[2022-01-04] MEDS: SODIUM CHLORIDE 0.9% IV 1,000 ML 100 ML IV CONT (05:45)
[2022-01-04 06:56] LABS: Basophils Absolute Auto 0.1 K/mm3 (0.0-0.1); Basophils Percent Auto 0.8 % (0.2-1.2); Eosinophils Absolute Auto 0.2 K/mm3 (0-0.3); Eosinophils Percent Auto 1.8 % (0-4.4); Hemoglobin 11.7 g/dL (14.0-18.0); Immature Granulocyte Absolute 0.09 K/mm3 (0.00-0.031); Immature Granulocyte Percent A 0.9 % (0-0.5); Lymphocytes Absolute Auto 1.92 K/mm3 (0.9-3.2); Lymphocytes Percent Auto 20.3 % (18.3-44.2); Mean Corpuscular HGB Conc 33.4 g/dl (32-36); Mean Corpuscular Hemoglobin 29.3 pg (26-34); Mean Corpuscular Volume 87.7 fl (80-100); Mean Platelet Volume 9.4 fl (7.4-10.4); Neutrophils Absolute Auto 6.3 K/mm3 (1.3-6.7); Neutrophils Percent Auto 66.2 % (45.5-73.1); Platelet Count Result 366 k/mm3 (150-375); Red Blood Count 3.99 M/mm3 (4.6-6.20); Red Cell Distribution Width 12.3 % (11.5-14.5); White Blood Count 9.5 K/mm3 (4.5-10.0)
[2022-01-04] MEDS: FAMOTIDINE 20 MG TABLET PO ×2 (08:32→19:57)
[2022-01-04] MEDS: SIMETHICONE 80 MG TAB.CHEW PO ×4 (08:32→19:57)
--- NOTE | 2022-01-04 09:35 | PM.PNGS ---
Progress Note: A&P Assessment and Plan (1) Diverticulitis of colon with perforation: Code(s): K57.20 - Diverticulitis of large intestine with perforation and abscess without bleeding Status: Acute Assessment and Plan: WBC normalized, we will advance diet to low-fiber continue watching drain output, currently looking slightly feculent, but may be residual from his original perforation and drain placement possibly home tomorrow if continuing to do well (2) Hypertension: Code(s): I10 - Essential (primary) hypertension Status: Acute (3) Migraines: Code(s): G43.909 - Migraine, unspecified, not intractable, without status migrainosus Status: Acute Subjective Subjective Date/Time Seen: 01/04/22 09:35 Interval history: pain improving, no fevers, tolerating diet Exam Resp: Effort & Inspection: normal respiratory effort Auscultation: clear to auscultation bilaterally Cardio: Rate: regular rate Rhythm: regular rhythm Heart sounds: S1 normal heart sound present and S2 normal heart sound present GI: Inspection: non-distended and other ( pigtail drain with scant feculent output) GI Palp: Yes Soft to palpation, Yes Tenderness to palpation present (GI) (mild LLQ), No Guarding due to palpation present (GI) and No Rebound tenderness present Auscultation: normal bowel sounds Objective Data Vital Signs Vital Signs: Vital Signs - 24 hr 01/03/22 10:37 01/03/22 13:16 01/03/22 18:00 Temperature 36.3 C L 36.8 C 36.2 C L Pulse Rate 67 77 78 Respiratory Rate 16 16 16 Blood Pressure 132/82 143/83 H 132/79 Pulse Oximetry 99 99 99 01/03/22 20:07 01/04/22 00:06 01/04/22 04:07 Temperature 36.2 C L 36.0 C L 36.3 C L Pulse Rate 59 L 62 68 Respiratory Rate 18 20 20 Blood Pressure 117/67 127/71 125/72 Pulse Oximetry 99 100 98 01/04/22 09:31 Temperature 36.1 C L Pulse Rate 64 Respiratory Rate 16 Blood Pressure 126/77 Pulse Oximetry 99 Intake/Output Intake/Output: Intake & Output 01/01/22 01/02/22 01/03/22 01/04/22 23:59 23:59 23:59 23:59 Intake Total 3120 1582 1740 1050 Output Total 2400 1600 1275 500 Balance 720 -18 465 550 Meds/Results Medications: Active Medications Generic Name Dose Route Start Last Admin Trade Name Freq PRN Reason Stop Dose Admin Hydrocodone Bitart/Acetaminophen 1 tab 12/31/21 08:20 Hydrocodone/Acetaminophen (*Crx) 5-325 Mg Tablet PO Q6H PRN Pain Rated 4-6 Famotidine 20 mg 12/31/21 09:00 01/04/22 08:32 Famotidine 20 Mg Tablet PO 20 mg Q12HR SLOAN Administration Piperacillin/Tazobactam/Dextrose 3.375 gm in 50 mls @ 100 mls/hr 01/02/22 12:00 01/04/22 05:44 Zosyn 3.375 Gm/D5w 50ml Pm IVPB 100 mls/hr Q6HR SLOAN Administration Sodium Chloride 1,000 mls @ 100 mls/hr 01/03/22 10:40 01/04/22 05:45 Normal Saline Iv IV CONT 100 mls/hr .Q10H SLOAN Administration Ibuprofen 400 mg 01/02/22 22:10 01/04/22 03:24 Ibuprofen 400 Mg Tablet PO 400 mg Q6H PRN Administration Pain Rated 1-3 Metronidazole 500 mg 12/31/21 08:30 01/04/22 05:44 Metronidazole 250 Mg Tablet PO 500 mg Q8HR SLOAN Administration Morphine Sulfate 2 mg 12/30/21 07:37 Morphine Sulfate (*Crx) 2 Mg/Ml Inj IV PUSH Q3H PRN Pain Rated 4-6 if NPO Ondansetron HCl 4 mg 12/30/21 01:01 Ondansetron Inj 4 Mg/2 Ml Vial IV PUSH Q4H PRN Nausea Polyethylene Glycol 17 gm 12/31/21 08:20 Polyethylene Glycol 3350 17 Gm Powd.Pack PO QAM PRN Constipation Simethicone 80 mg 01/01/22 09:00 01/04/22 08:32 Simethicone 80 Mg Tab.Chew PO 80 mg QID SLOAN Administration Radiology Results: ITS Impressions Abdomen/Pelvis CT 01/02/22 13:47 IMPRESSION: 1. Persistent sigmoid diverticulitis with evidence for perforation with free intraperitoneal gas and interval development of multiloculated abscess in the pelvis anterior to the colon. Catheter Placement CT 01/03/22 13:31
[2022-01-05 03:24] VITALS: BP 119/68; PULSE 63; RESP 17; TEMP 36.6; O2SAT 99
[2022-01-05] MEDS: metroNIDAZOLE 250 MG TABLET 500 MG PO (05:32)
[2022-01-05 06:52] LABS: Hematocrit 37.9 % (42.0-52.0); Hemoglobin 12.3 g/dL (14.0-18.0); Mean Corpuscular HGB Conc 32.5 g/dl (32-36); Mean Corpuscular Hemoglobin 28.8 pg (26-34); Mean Corpuscular Volume 88.8 fl (80-100); Mean Platelet Volume 9.3 fl (7.4-10.4); Platelet Count Result 399 k/mm3 (150-375); Red Blood Count 4.27 M/mm3 (4.6-6.20); Red Cell Distribution Width 12.4 % (11.5-14.5); White Blood Count 8.5 K/mm3 (4.5-10.0)
[2022-01-05 07:17] LABS: Anion Gap 11 mmol/L (8-16); Blood Urea Nitrogen 10 mg/dL (9-20); CRP 6.2 mg/dL (<1.0); Calcium 8.9 mg/dL (8.4-10.2); Carbon Dioxide 27 mmol/L (22-30); Chloride 102 mmol/L (98-107); Estimated CRCL calculation 120 ml/min; Estimated Glomerular Filt Rate > 60; Glucose 105 mg/dL (65-110); Sodium 140 mmol/L (137-145)
[2022-01-05] MEDS: FAMOTIDINE 20 MG TABLET PO (09:18)
[2022-01-05] MEDS: SIMETHICONE 80 MG TAB.CHEW PO (09:18)
[2022-01-05 10:00] VITALS: BP 130/79; PULSE 67; RESP 16; TEMP 36.3; O2SAT 98
--- NOTE | 2022-01-05 10:11 | PM.DS ---
DS: Admitting Diagnosis Discharge Date 01/05/2022 Admitting Diagnosis diverticulitis of large intestine with perforation DS: Discharge Diagnosis Discharge Diagnosis (1) Diverticulitis of colon with perforation: Code(s): K57.20 - Diverticulitis of large intestine with perforation and abscess without bleeding Status: Acute (2) Hypertension: Code(s): I10 - Essential (primary) hypertension Status: Acute (3) Migraines: Code(s): G43.909 - Migraine, unspecified, not intractable, without status migrainosus Status: Acute DS: Summary Hospital Course Reason for hospitalization: diverticulitis Hospital Course: this is a 31-year-old man who was readmitted on 12/30/2021 with worsening diverticulitis. He was just hospitalized from 12/27-12/29 with diverticulitis and felt worsening pain while at home and presented back to the emergency department. He had an elevated white blood count and CT showed worsening diverticulitis with small volume of free intraperitoneal gas. He was admitted and kept NPO and placed on broad-spectrum IV antibiotics. He was not showing any significant improvement, therefore a repeat CT was obtained on 01/02/2022 which showed interval development of a multiloculated abscess in the pelvis. A CT-guided percutaneous drain was then placed by Interventional Radiology on 01/03/2022. His diet was gradually advanced from clear liquids to low fiber diet. He was remaining afebrile and his pain was well controlled. His white blood count normalized. He was having minimal feculent output from the drain. Bowel function was returning to normal. He was discharged with the drain on 01/05/2022. Status at Discharge Functional status at discharge: independent ambulation Overall status at discharge: patient is progressing back to baseline Time Spent with Patient Time attestation: Total time spent providing and/or coordinating discharge services: Time spent: Less than 30 minutes Exam Const: General: cooperative, healthy appearing and no acute distress Resp: Effort & Inspection: normal respiratory effort Auscultation: clear to auscultation bilaterally Cardio: Rate: regular rate Rhythm: regular rhythm Heart sounds: S1 normal heart sound present and S2 normal heart sound present GI: Inspection: non-distended and other ( Pigtail drain with minimal feculent output) GI Palp: Yes Soft to palpation, Yes Tenderness to palpation present (GI) ( minimal left lower quadrant tenderness just inferior to drain site), No Guarding due to palpation present (GI) and No Rebound tenderness present Auscultation: normal bowel sounds DS: Data Data Completed and Pending Labs on day of discharge: Labs from last 24 hours 01/05/22 01/05/22 06:44 06:44 WBC 8.5 RBC 4.27 L Hgb 12.3 L Hct 37.9 L MCV 88.8 MCH 28.8 MCHC 32.5 RDW 12.4 Plt Count 399 H MPV 9.3 Sodium 140 Potassium 4.0 Chloride 102 Carbon Dioxide 27 Anion Gap 11 BUN 10 D Creatinine 0.90 Estim Creat Clear Calc 120 Estimated GFR > 60 Glucose 105 Calcium 8.9 C-Reactive Protein 6.2 H Preliminary micro results at discharge 01/03/22 13:03 Anaerobic Culture - Preliminary Abscess Imaging Radiologist's impression: ITS Impressions Abdomen/Pelvis CT 12/30/21 08:26 IMPRESSION: 1. Worsened acute sigmoid diverticulitis with worsened small volume of free intraperitoneal gas. No drainable abscess. Abdomen/Pelvis CT 01/02/22 13:47 IMPRESSION: 1. Persistent sigmoid diverticulitis with evidence for perforation with free intraperitoneal gas and interval development of multiloculated abscess in the pelvis anterior to the colon. Catheter Placement CT 01/03/22 13:31 [address]: 1[address]-guided perisigmoid abscess drainage. 2. 5 mL opaque, castañeda fluid was sent for aerobic and anaerobic cultures. Discharge Plan Discharge Attending physician on discharge: José Kemp
== END 2022-01-05 12:30 | disposition home or self-care (01) | DRG 392 ==
LOC: ANHED 12-30 01:01 → ANH2MED 12-30 01:18
PROVIDERS: Emergency Medicine; Nurse Practitioner Family; Surgery; Admitting Provider Internal Medicine; Emergency Provider Nurse Practitioner Family; PCP Nurse Practitioner Family; Visit Provider Surgery
DX: K57.20 Diverticulitis of large intestine with perforation and abscess without bleeding (principal); E78.5 Hyperlipidemia, unspecified; I10 Essential (primary) hypertension; K58.9 Irritable bowel syndrome, unspecified; G43.909 Migraine, unspecified, not intractable, without status migrainosus
CPT/HCPCS: 36415; 74177; 75989; 80048; 80053; 81001; 83690; 83735; 85025; 85027; 85610; 85730; 86140; 87040; 87070; 87075; 87205; 96361; 96365; 96375; 99285; A9270; C1729; C1769; G0378; J1741; J2543; J7030; Q9967

== ENCOUNTER 2022-01-14 09:25 | Outpatient (CLI) | payer BC, SELFPAY ==
--- NOTE | ~2022-01-14 | CT_ITS ---
EXAMINATION: CT abdomen pelvis w con DATE: 01/14/2022 09:59 INDICATION: Perforated sigmoid diverticulitis with abscess. TECHNIQUE: Computed tomography (CT) of the abdomen and pelvis was performed with 100 mL Omnipaque 350 intravenous contrast. Automated exposure control and iterative reconstruction technique were employe d. The dose-length product was 821.90 mGy-cm. COMPARISON: CT abdomen and pelvis 01/02/2022 FINDINGS: The visualized portions of the lung bases are clear without pneumonia or pleural effusion. The heart size is normal. No pericardial effusion. The liver, gallbladder, spleen, pancreas, adrenal glands, and kidneys are normal. There are no dilated loops of bowel. The appendix is normal. There ar e no pathologically enlarged lymph nodes. There is no free intraperitoneal fluid. There is a percutan eous drain in left lower quadrant. There is a small volume of extraluminal gas adjacent to sigmoid co jama. There is mild thoracolumbar spondylosis. IMPRESSION: 1. Small volume of extraluminal gas adjacent to sigmoid colon. Percutaneous drain in expected positio n without residual drainable fluid. Reviewed, dictated and finalized at location [facility]. IMPRESSION: 1. Small volume of extraluminal gas adjacent to sigmoid colon. Percutaneous latoya in in expected position without residual drainable fluid.
== END 2022-01-14 09:26 | disposition home or self-care (01) ==
PROVIDERS: PCP Nurse Practitioner Family; Visit Provider Surgery
DX: K57.20 Diverticulitis of large intestine with perforation and abscess without bleeding (principal)
CPT/HCPCS: 74177; Q9967

== ENCOUNTER 2022-01-16 10:30 | Outpatient (CLI) | payer BC, SELFPAY ==
[2022-01-16 11:03] LABS: Basophils Absolute Auto 0.1 K/mm3 (0.0-0.1); Eosinophils Percent Auto 0.2 % (0-4.4); Hematocrit 48.3 % (42.0-52.0); Hemoglobin 16.1 g/dL (14.0-18.0); Immature Granulocyte Absolute 0.04 K/mm3 (0.00-0.031); Immature Granulocyte Percent A 0.4 % (0-0.5); Lymphocytes Absolute Auto 1.62 K/mm3 (0.9-3.2); Lymphocytes Percent Auto 15.4 % (18.3-44.2); Mean Corpuscular HGB Conc 33.3 g/dl (32-36); Mean Platelet Volume 10.4 fl (7.4-10.4); Monocytes Absolute Auto 0.7 K/mm3 (0.1-0.6); Monocytes Percent Auto 6.7 % (2.6-8.5); Neutrophils Percent Auto 76.3 % (45.5-73.1); Platelet Count Result 384 k/mm3 (150-375); Red Blood Count 5.55 M/mm3 (4.6-6.20); Red Cell Distribution Width 12.5 % (11.5-14.5); White Blood Count 10.5 K/mm3 (4.5-10.0)
[2022-01-16 11:16] LABS: Anion Gap 17 mmol/L (8-16); Blood Urea Nitrogen 12 mg/dL (9-20); Calcium 9.8 mg/dL (8.4-10.2); Carbon Dioxide 24 mmol/L (22-30); Chloride 98 mmol/L (98-107); Estimated Glomerular Filt Rate > 60; Glucose 109 mg/dL (65-110); Potassium 4.3 mmol/L (3.4-5.0); Sodium 139 mmol/L (137-145)
== END 2022-01-16 10:31 | disposition home or self-care (01) ==
LOC: ANHLAB 10:32
PROVIDERS: PCP Nurse Practitioner Family; Visit Provider Surgery
DX: K57.20 Diverticulitis of large intestine with perforation and abscess without bleeding (principal)
CPT/HCPCS: 36415; 80048; 85025

== ENCOUNTER 2022-01-23 13:43 | Outpatient (CLI) | payer BC, SELFPAY ==
[2022-01-23 14:07] LABS: Basophils Absolute Auto 0.1 K/mm3 (0.0-0.1); Basophils Percent Auto 1.3 % (0.2-1.2); Eosinophils Absolute Auto 0.1 K/mm3 (0-0.3); Eosinophils Percent Auto 1.8 % (0-4.4); Hematocrit 44.1 % (42.0-52.0); Hemoglobin 14.8 g/dL (14.0-18.0); Immature Granulocyte Absolute 0.01 K/mm3 (0.00-0.031); Immature Granulocyte Percent A 0.2 % (0-0.5); Lymphocytes Absolute Auto 1.56 K/mm3 (0.9-3.2); Lymphocytes Percent Auto 28.8 % (18.3-44.2); Mean Corpuscular HGB Conc 33.6 g/dl (32-36); Mean Corpuscular Hemoglobin 29.4 pg (26-34); Mean Corpuscular Volume 87.7 fl (80-100); Mean Platelet Volume 10.1 fl (7.4-10.4); Monocytes Absolute Auto 0.7 K/mm3 (0.1-0.6); Monocytes Percent Auto 13.1 % (2.6-8.5); Neutrophils Percent Auto 54.8 % (45.5-73.1); Platelet Count Result 311 k/mm3 (150-375); Red Blood Count 5.03 M/mm3 (4.6-6.20); Red Cell Distribution Width 12.7 % (11.5-14.5); White Blood Count 5.4 K/mm3 (4.5-10.0)
== END 2022-01-23 13:44 | disposition home or self-care (01) ==
PROVIDERS: PCP Nurse Practitioner Family; Visit Provider Surgery
DX: K57.20 Diverticulitis of large intestine with perforation and abscess without bleeding (principal)
CPT/HCPCS: 36415; 85025

== ENCOUNTER 2022-02-03 17:48 | Inpatient (IN) | payer BC, SELFPAY ==
[2022-02-03] VITALS (14 sets, daily range): BP systolic 132–144; BP diastolic 72–103; PULSE 100–120; RESP 18; TEMP 37.3; O2SAT 96–99
--- NOTE | ~2022-02-03 | CT_ITS ---
EXAMINATION: CT abdomen pelvis w con DATE: 02/03/2022 20:02 INDICATION: Right lower quadrant abdominal pain. History of diverticulitis. TECHNIQUE: Computed tomography (CT) of the abdomen and pelvis was performed with 100 CC Omnipaque 350 intravenous contrast. Automated exposure control and iterative reconstruction technique were employe d. Exam dose: 599.81 mGy-cm total exam DLP. COMPARISON: 01/14/2022 CT abdomen pelvis FINDINGS: The lung bases are clear of infiltrate or consolidation. Normal heart size. No pericardial or pleural effusion. The liver, gallbladder, bile ducts, pancreas, pancreatic duct, spleen, and adrenal glands are unremar kable. No renal mass lesion is evident. 2 mm nonobstructing left renal calculus. No other urinary tract calc ulus or hydroureteronephrosis. Mild prostate calcification. Centimeter size of air-containing pericolic cavity of the sigmoid: Area, without fluid level. There i s however some increased pericolic if fat soft tissue infiltration suggesting some increased inflamma tory change in the pericolic soft tissues in the sigmoid area since 01/2022. No bowel obstruction is evident. Normal appendix. IMPRESSION: Smaller air-containing cavity in the pericolic sigmoid area but increased pericolic infl ammatory change since 01/2022. No drainable fluid collection is noted. Reviewed, dictated and finalized at [facility]. Reviewed, dictated and finalized at location A. IMPRESSION: Smaller air-containing cavity in the pericolic sigmoid area but in creased pericolic inflammatory change since 01/2022. No drainable fluid collec tion is noted.
[2022-02-03 19:19] LABS: Basophils Absolute Auto 0.1 K/mm3 (0.0-0.1); Basophils Percent Auto 0.4 % (0.2-1.2); Eosinophils Percent Auto 0.3 % (0-4.4); Hematocrit 45.2 % (42.0-52.0); Hemoglobin 15.5 g/dL (14.0-18.0); Immature Granulocyte Absolute 0.05 K/mm3 (0.00-0.031); Immature Granulocyte Percent A 0.4 % (0-0.5); Lymphocytes Absolute Auto 1.51 K/mm3 (0.9-3.2); Lymphocytes Percent Auto 11.4 % (18.3-44.2); Mean Corpuscular HGB Conc 34.3 g/dl (32-36); Mean Corpuscular Hemoglobin 29.9 pg (26-34); Mean Corpuscular Volume 87.3 fl (80-100); Mean Platelet Volume 9.6 fl (7.4-10.4); Monocytes Absolute Auto 1.1 K/mm3 (0.1-0.6); Monocytes Percent Auto 7.9 % (2.6-8.5); Neutrophils Absolute Auto 10.6 K/mm3 (1.3-6.7); Neutrophils Percent Auto 79.6 % (45.5-73.1); Platelet Count Result 239 k/mm3 (150-375); Red Blood Count 5.18 M/mm3 (4.6-6.20); White Blood Count 13.3 K/mm3 (4.5-10.0)
[2022-02-03 19:31] LABS: Lactic Acid Reflex 0.9 mmol/L (0.7-2.0)
[2022-02-03 19:33] LABS: Alanine Aminotransferase 130 U/L (6-50); Albumin Level 4.8 g/dL (3.5-5.1); Alkaline Phosphatase 73 U/L (38-126); Anion Gap 16 mmol/L (8-16); Aspartate Amino Transferase 89 U/L (17-59); Blood Urea Nitrogen 5 mg/dL (9-20); Calcium 9.1 mg/dL (8.4-10.2); Carbon Dioxide 27 mmol/L (22-30); Chloride 98 mmol/L (98-107); Estimated CRCL calculation 143 ml/min; Estimated Glomerular Filt Rate > 60; Glucose 99 mg/dL (65-110); Lipase 64 U/L (23-300); Potassium 3.5 mmol/L (3.4-5.0); Sodium 141 mmol/L (137-145)
[2022-02-03 19:35] LABS: Add Urine Microscopic? YES; Appearance Urine Clear (Clear); Bilirubin Urine Negative (Negative); Blood Urine 2+ (Negative); Color Urine Yellow (Yellow); Glucose Urine UA Negative (Negative); Ketones Urine 1+ mg/dL (Negative); Leukocyte Esterase Ur Negative LEU/UL (Negative); Mucus Urine Rare /lpf; Nitrate Urine Negative (Negative); Protein Urine Negative (Negative); Specific Grav Ur 1.015 (1.001-1.035); Urobilinogen Urine Negative mg/dL (<2.0)
--- NOTE | 2022-02-03 19:52 | ED.GENADULT ---
HPI - General Adult General Chief complaint: Abdominal Pain Stated complaint: post op complications - abd pain, fever Time Seen by Provider: 02/03/22 19:15 History of Present Illness HPI narrative: This is a 31-year-old male who was recently diagnosis with your diverticulitis that was complicated by an abscess. Percutaneous drain was placed for drainage and since then the patient has been doing fairly well. The drain was removed 1 week ago. Several days ago the patient started developing some right lower quadrant pain. He is also having increased bowel urgency and the character of his stools have changed to mostly mucus or small caliber stools. patient recorded a temperature of 100.2? at home. He denies to nausea or vomiting, chest pain, difficulty breathing, urinary difficulties. Related Data Home Medications Medication Instructions Recorded Confirmed ibuprofen 200 mg tablet 200 mg PO Q6H PRN 01/16/22 01/31/22 Allergies Allergy/AdvReac Type Severity Reaction Status Date / Time No Known Allergies Allergy Verified 01/23/22 13:13 Review of Systems Review of Systems: CONSTITUTIONAL: Denies night sweats. EYES: No eye pain ENT: Denies rhinorrhea CARDIOVASCULAR: Denies palpitations RESPIRATORY: Denies hemoptysis GASTROINTESTINAL: Denies hematemesis GENITOURINARY: Denies hematuria. SKIN: Denies rash MUSCULOSKELETAL: Denies myalgia. NEUROLOGIC: Denies weakness. 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 He has some fiancee. Patient does not drink use marijuana or illicit drugs. He does not have a durable power health care attorney for healthcare. Code status full code Smoking status: Former smoker Alcohol intake: never Substance use: never Spiritual care concerns: No Exam Narrative: APPEARANCE: No apparent distress. Head atraumatic. EYES: PERRLA/EOMI, NOSE: Normal no drainage NECK: Supple, Trachea midline RESPIRATORY: CTAB, No increased work of breathing. CARDIOVASCULAR: S1S2 appreciated ABDOMINAL: Patient has tenderness to palpation in the right lower quadrant. No guarding or rebound. Bowel sounds are present MUSCULOSKELETAl: No obvious deformities NEURO: Alert. Moving 4/4 extremities SKIN:: Warm, dry. Normal color PSYCHIATRIC: Normal affect Course Vital Signs Vital signs: Vital Signs Temperature 99.2 F 02/03/22 18:12 Pulse Rate 120 H 02/03/22 18:12 Respiratory Rate 18 02/03/22 18:12 Blood Pressure 144/103 H 02/03/22 18:12 Pulse Oximetry 98 02/03/22 18:12 Temperature 99.2 F 02/03/22 18:12 Pulse Rate 100 02/03/22 19:12 Respiratory Rate 18 02/03/22 19:12 Blood Pressure 138/84 02/03/22 19:12 Pulse Oximetry 99 02/03/22 19:12 Medical Decision Making [facility] Narrative Medical decision making narrative: this is a 31-year-old male with a recent history of diverticulitis presenting ED with abdominal pain. He has tenderness in the right lower quadrant. Differential includes recurrence of his diverticulitis, postop complications, appendicitis. Abdominal lab work CT abdomen and pelvis have been ordered. The patient has been given fluid resuscitation. Labwork was significant for white blood cell count of 13.3. The rest of his lab work was within normal limits. CT abdomen pelvis was interpreted as: Smaller air-conta
[2022-02-03] MEDS: SODIUM CHLORIDE 0.9% IV 2,000 ML 999 ML IV CONT (20:48)
[2022-02-04] VITALS (7 sets, daily range): BP systolic 118–133; BP diastolic 71–93; PULSE 77–103; RESP 16; TEMP 35.9–36.9; O2SAT 95–100; BMI 32.5
--- NOTE | 2022-02-04 01:05 | ADMGEN ---
This patient, Heavenly Morales, was admitted to [facility] Surg Room 301-01. Patient/family oriented to hospital policies and general routines including ID bracelet, bed and alarms, visiting hours, pain management, procedures, bathroom and other care routines, personal items, smoking policy, room service/diet, and visiting hours. Information on how to activate the Rapid Response Team has been discussed. Patient/Family are encouraged to report perceived risks to care and to ask questions if they do not understand what they are told or what they should do.
[2022-02-04] MEDS: LACTATED RINGERS 1,000 ML 150 ML IV CONT ×2 (02:30→10:13)
[2022-02-04 03:15] LABS: Hematocrit 38.5 % (42.0-52.0); Mean Corpuscular HGB Conc 33.8 g/dl (32-36); Mean Corpuscular Hemoglobin 29.5 pg (26-34); Mean Corpuscular Volume 87.3 fl (80-100); Mean Platelet Volume 9.7 fl (7.4-10.4); Platelet Count Result 204 k/mm3 (150-375); Red Blood Count 4.41 M/mm3 (4.6-6.20); Red Cell Distribution Width 13.1 % (11.5-14.5); White Blood Count 9.3 K/mm3 (4.5-10.0)
[2022-02-04 03:25] LABS: Anion Gap 12 mmol/L (8-16); Blood Urea Nitrogen 5 mg/dL (9-20); Calcium 8.3 mg/dL (8.4-10.2); Carbon Dioxide 24 mmol/L (22-30); Chloride 102 mmol/L (98-107); Estimated CRCL calculation 142 ml/min; Estimated Glomerular Filt Rate > 60; Glucose 104 mg/dL (65-110); Potassium 3.5 mmol/L (3.4-5.0); Sodium 138 mmol/L (137-145)
--- NOTE | 2022-02-04 10:11 | PM.IMHP ---
H&P: HPI History of Present Illness Date/Time: 02/04/22 10:11 Chief Complaint: RLQ abdominal pain, fever Narrative: This is a 31-year-old male known to our service for previous episode of perforated diverticulitis with abscess. He was admitted from 12/27/21 through 01/05/22 and treated conservatively with IV antibiotics and percutaneous drainage. He was discharged home with the drain and oral antibiotics. He had an outpatient follow-up CT scan of the abdomen/pelvis on 01/14/22 that showed a small volume of extraluminal gas adjacent to the sigmoid colon and his perc drain in expected position without residual drainable fluid. He followed up with Dr. Kemp in the office and continued on oral antibiotics until 01/23/22 when the percutaneous drain was removed. His antibiotics stopped a few days after this office visit. The patient had improved and transitioned to a high fiber diet. He reports intermittently noticing some blood on his toilet paper when wiping if he has frequent stools. This comes and goes and has never been in large quantities. He has discussed this with his PCP in the past and was told he may have hemorrhoids or get irritated. Yesterday, he was having frequent loose stools and began noticing streaks of blood in the stool and blood on his toilet paper. He felt like there was a cut at his rectum that was slightly painful with wiping, but did not notice any bulge. He even states that he took a picture of his anus to try and see if there was anything visible and denies seeing any specific abnormalities. He called our office three times yesterday. Initially, this was due to concern of the rectal bleeding and frequent stools, but then he began developing some lower abdominal pain. He also reported mucous-like stools in smaller quantities than normal. His pain slowly worsened throughout the day, but was tolerable. He reports having suprapubic and RLQ abdominal pain. He had not taken any medications for the abdominal pain and had monitored his temperature. I called him yesterday and spoke with him regarding his symptoms. We ordered a CBC for today and scheduled him for an office visit with Dr. Kemp that was supposed to be this morning. Not long after our conversation, the patient states his temperature went up to 100.2F. He felt his abdominal pain had worsened slightly as well. Due to the fever, he decided to come into the ER for evaluation last evening. Labs showed a WBC count of 13.3. CT scan of the abdomen and pelvis showed still a small air-containing cavity, smaller than on 01/14/22, near the sigmoid area with possibly some increased pericolic inflammatory change since his last CT. The ER provider called our service and he was admitted for diverticulitis. He was started on IV Zosyn, IV fluids, and made NPO. He is now seen this morning. He reports only having Tylenol overnight, which was actually for his headache not his abdominal pain. He felt his headache was more aggravating than his abdominal pain. He denies having any pain at rest, but notices mostly RLQ abdominal pain with bending, trying to sit up, and certain movements. He does not feel the pain is as bad as his last episode in December. He has been afebrile since admission. He already feels his abdominal pain has improved. He reports some mild intermittent nausea yesterday, but not this morning. He has had 3 bowel movements this morning already that he believes are more liquid today, but denies any rectal bleeding today. No blood on his toilet paper or in his stool. Review of Systems Review of Systems: All systems reviewed & are unremarkable except as noted in HPI and below Constitutional: Constitutional: Reports no additional constitutional complaints, Reports chills, Denies fatigue, Reports fever(s), Reports headache(s) and Denies poor appetite Eyes: Eyes: Reports no additional eye complaints ENT: Reports system reviewed and no additional complaints, except as documented and Reports No
[2022-02-04] MEDS: LACTATED RINGERS 1,000 ML 50 ML IV CONT (17:06)
[2022-02-04] MEDS: ACETAMINOPHEN 325 MG TABLET 650 MG PO (20:06)
[2022-02-05] MEDS: ACETAMINOPHEN 325 MG TABLET 650 MG PO (05:21)
[2022-02-05 06:04] VITALS: BP 115/77; PULSE 65; RESP 16; TEMP 36.2; O2SAT 99
[2022-02-05 06:29] LABS: Basophils Absolute Auto 0.1 K/mm3 (0.0-0.1); Basophils Percent Auto 0.9 % (0.2-1.2); Eosinophils Absolute Auto 0.2 K/mm3 (0-0.3); Eosinophils Percent Auto 3.6 % (0-4.4); Hematocrit 38.6 % (42.0-52.0); Hemoglobin 12.9 g/dL (14.0-18.0); Immature Granulocyte Absolute 0.02 K/mm3 (0.00-0.031); Immature Granulocyte Percent A 0.4 % (0-0.5); Lymphocytes Absolute Auto 1.39 K/mm3 (0.9-3.2); Lymphocytes Percent Auto 24.8 % (18.3-44.2); Mean Corpuscular HGB Conc 33.4 g/dl (32-36); Mean Corpuscular Hemoglobin 29.8 pg (26-34); Mean Corpuscular Volume 89.1 fl (80-100); Mean Platelet Volume 9.7 fl (7.4-10.4); Monocytes Absolute Auto 0.8 K/mm3 (0.1-0.6); Monocytes Percent Auto 13.4 % (2.6-8.5); Neutrophils Absolute Auto 3.2 K/mm3 (1.3-6.7); Neutrophils Percent Auto 56.9 % (45.5-73.1); Platelet Count Result 177 k/mm3 (150-375); Red Blood Count 4.33 M/mm3 (4.6-6.20); Red Cell Distribution Width 13.2 % (11.5-14.5); White Blood Count 5.6 K/mm3 (4.5-10.0)
[2022-02-05 06:41] LABS: Anion Gap 13 mmol/L (8-16); Blood Urea Nitrogen 3 mg/dL (9-20); CRP 7.5 mg/dL (<1.0); Calcium 8.4 mg/dL (8.4-10.2); Carbon Dioxide 26 mmol/L (22-30); Chloride 100 mmol/L (98-107); Estimated CRCL calculation 142 ml/min; Estimated Glomerular Filt Rate > 60; Glucose 113 mg/dL (65-110); Potassium 3.3 mmol/L (3.4-5.0); Sodium 139 mmol/L (137-145)
[2022-02-05] MEDS: PSYLLIUM POWDER PACKET 1 PACKET PO (09:22)
[2022-02-05] MEDS: POTASSIUM CHLORIDE 20 MEQ TABLET 40 MEQ PO (09:24)
--- NOTE | 2022-02-05 10:55 | PM.DS ---
DS: Admitting Diagnosis Discharge Date 02/05/2022 Admitting Diagnosis Recurrent Sigmoid diverticulitis Obesity BMI 32 Hypertension Migraines DS: Discharge Diagnosis Discharge Diagnosis (1) Diverticulitis: Code(s): K57.92 - Diverticulitis of intestine, part unspecified, without perforation or abscess without bleeding Status: Acute (2) Hypertension: Code(s): I10 - Essential (primary) hypertension Status: Acute Assessment and Plan: Blood pressure has remained stable throughout the hospitalization. He does not take any home medications for his high blood pressure. He has worked on lifestyle changes to improve his elevated blood pressure prior to admission. (3) Migraines: Code(s): G43.909 - Migraine, unspecified, not intractable, without status migrainosus Status: Acute Assessment and Plan: He has a history of migraines. He has had a headache during his hospitalization, which has been treated successfully with Tylenol. No acute issues. (4) Obesity (BMI 30-39.9): Code(s): E66.9 - Obesity, unspecified Status: Acute Assessment and Plan: Encourage lifestyle and diet modifications to promote weight loss. (5) Hypokalemia: Code(s): E87.6 - Hypokalemia Status: Acute Assessment and Plan: Labs monitored during this hospitalization in. He had mild hypokalemia on labs this morning with a potassium of 3.3. He was given 40 mEq oral potassium chloride once. This is likely related to his restricted diet over the past few days. He will be advancing his diet at discharge. DS: Summary Hospital Course Reason for hospitalization: This is a 31-year-old male known to our service for a previous episode of perforated diverticulitis with abscess. He was admitted from 12/27/21 through 01/05/22 and treated conservatively with IV antibiotics and percutaneous drainage. He was discharged home with the drain and oral antibiotics. He had an outpatient follow-up CT scan of the abdomen/pelvis on 01/14/22 that showed a small volume of extraluminal gas adjacent to the sigmoid colon and his perc drain in expected position without residual drainable fluid. He followed up with Dr. Kemp in the office and continued on oral antibiotics until 01/23/22 when the percutaneous drain was removed. His antibiotics stopped a few days after this office visit. He then began noticing lower abdominal pain and rectal bleeding for 1 day. He had called our office and was monitoring his temperature at home. He developed a temperature of a 100.2? F and fell his abdominal pain was getting worse throughout the day, therefore he came into the ER for evaluation. CT scan of the abdomen and pelvis in the ER showed some increase in inflammatory change around the sigmoid colon compared to his CT scan on 01/14/2022. The previous extraluminal air cavity appeared smaller on the CT. [place] [id number]. He was admitted in the setting of diverticulitis with leukocytosis and rectal bleeding. Hospital Course: He was admitted and initially made NPO. He was treated conservatively with IV Zosyn, bowel rest, and IV fluids. His leukocytosis quickly resolved. His abdominal pain also quickly resolved by the next morning. He was still slightly tender, but was not having any pain at rest. He was advanced to a liquid diet. He has since been afebrile since admission. He is tolerating a liquid diet. The patient's rectal bleeding resolved. He denies having any rectal bleeding since admission. His labs were monitored and his hemoglobin remained stable. He initially refused a rectal exam from myself, but Dr. Kemp will plan to do a thorough evaluation at his follow-up appointment as an outpatient to assess for hemorrhoids or a fissure. Today, the patient is not having any abdominal pain and is not even having any tenderness with movement as he was yesterday. Denies any nausea or vomiting.
[2022-02-05 13:35] VITALS: BP 135/82; PULSE 58; RESP 16; TEMP 36.3; O2SAT 100
== END 2022-02-05 13:45 | disposition home or self-care (01) | DRG 392 ==
LOC: ANHED 22:07 → ANH3MEDSUR 02-04 00:44
PROVIDERS: Emergency Medicine; Admitting Provider Surgery; Emergency Provider Emergency Medicine; PCP Nurse Practitioner Family; Visit Provider Nurse Practitioner Family
DX: K57.32 Diverticulitis of large intestine without perforation or abscess without bleeding (principal); I10 Essential (primary) hypertension; E87.6 Hypokalemia; E66.9 Obesity, unspecified; E78.5 Hyperlipidemia, unspecified; K58.9 Irritable bowel syndrome, unspecified; G43.909 Migraine, unspecified, not intractable, without status migrainosus
CPT/HCPCS: 36415; 74177; 80048; 80053; 81001; 83605; 83690; 85025; 85027; 86140; 96360; 99285; A9270; J0131; J2543; J7030; J7120; Q9967